=== PATIENT | male | born 1975 | race Caucasian/White ===

== ENCOUNTER 2017-10-26 16:57 | Inpatient (IN) ==
--- NOTE | 2017-10-26 21:32 | Internal Med History&Physical ---
Date of Encounter: 10/26/17 Time of Encounter: 21:28 Assessment and Plan (1) Gastritis Current visit: Yes Status: Acute Acute gastritis need further evaluation will continue Protonix from a Qualifiers: Gastritis type: unspecified gastritis Chronicity: acute Gastritis bleeding: without bleeding Qualified Code(s): K29.00 - Acute gastritis without bleeding (2) Nausea & vomiting Current visit: Yes Status: Acute Patient had not intractable nausea and vomiting which has not subsided normal vomiting will continue Zofran Qualifiers: Vomiting type: unspecified Vomiting Intractability: non-intractable Qualified Code(s): R11.2 - Nausea with vomiting, unspecified (3) HTN (hypertension) Current visit: Yes Status: Chronic Chronic patient takes Vasotec 20 mg twice a day but was unable to take it due to nausea and vomiting with resume with lisinopril once a day Qualifiers: Hypertension type: essential hypertension Qualified Code(s): I10 - Essential (primary) hypertension (4) Chronic pain Current visit: Yes Status: Chronic Resume home medication when available Qualifiers: Chronic pain type: chronic pain syndrome Qualified Code(s): G89.4 - Chronic pain syndrome (5) Crohn disease Current visit: Yes Status: Acute Is unclear about diagnosis of Crohn disease patient is not having any active bleeding GI consulted for further evaluation Qualifiers: Gastrointestinal tract location: unspecified location Digestive disease complication type: unspecified complication Qualified Code(s): K50.919 - Crohn 's disease, unspecified, with unspecified complications (6) Smoking Current visit: Yes Status: Chronic Chronic will place nicotine patch (7) Hypokalemia Current visit: Yes Status: Acute Patient had received multiple supplement we will recheck now and a.m. (8) Hypomagnesemia Current visit: Yes Status: Acute Recheck now and in a.m. Internal Medicine - H&P: HPI Chief complaint: nausea , vomtting Admitted From: Intrahospital Transfer Plans for Post Hospital Care: Home History of present illness: Mr. De is a 41 year old male Patient with history of questionable diagnosis of Crohn disease, hypertension, chronic pain syndrome, smoking, high cholesterol, and GERD. Patient was admitted to [facility] with intractable nausea , vomiting and diarrhea for 5 days some abdominal pain . He was unable to tolerate by mouth intake. During hospital admissions diarrhea had resolved vomiting has improved. Patient have severe hypokalemia , severe hypomagnesemia being replaced CT of the abdomen shows moderate to severe gastric wall thickening . Patient is being transferred for GI evaluation patient has seen DR WILY kidd in the past and is being consulted . Is currently stable mild abdominal pain no more vomiting , diarrhea has resolved blood pressure has been uncontrolled because of unable to take by mouth but he says he is able to take by mouth now Past Med Surg Social Fam HX - Past Medical History Medical history: GERD, hyperlipidemia, hypertension All Systems PM: A 10-system review of systems was performed and is negative for pertinent findings except as documented above in the HPI. - Constitutional Constitutional: no chills, no fever(s), no night sweats - EENT Eyes: no change in vision, no discharge, no pain, no photophobia Ears: no ear discharge, no ear pain, no tinnitus Nose, mouth and throat: no dysphagia, no nasal discharge, no neck pain, no sore throat - Cardiovascular Cardiovascular ROS IM: no chest pain, no diaphoresis, no dyspnea, no lightheadedness, no palpitations, no syncope - Respiratory Respiratory: no cough, no dyspnea, no wheezing, no excessive phlegm production - Gastrointestinal Gastrointestinal: abdominal pain, diarrhea, nausea, vomiting - Musculoskeletal Musculoskeletal ROS IM: no numbness, no tingling - Integumentary Integumentary IM: no rash, no unusual bruising - Neurological Neurological ROS: no confusion, no convulsions, no focal weakness, no numbness, no tingling, no tremor(s) - Head Head exam: Present: atraumatic, normocephalic - Eye Eye exam: Present: PERRL, conjuntiva pink, sclera anicteric Pupils: Present: PERRL - Respiratory Respiratory exam: Present: CTAB. Absent: accessory muscle use, rales, rhonchi, wheezes - Cardiovascular Cardiovascular exam: Present: RRR, +S1, +S2. Absent: diastolic murmur, gallop, rubs, systolic murmur - GI/Abdominal GI/Abdominal exam: Present: tenderness - Extremities Exam Extremities exam: Present: warm, radial pulses palpable and symmetrical. Absent : calf tenderness, cyanotic, pedal edema
[2017-10-26] MEDS ORDERED: Naloxone 0.4 MG/ML INJ IVP PRN (21:38)
[2017-10-26] MEDS ORDERED: traMADol 50 MG TABLET PO PRN (21:38)
[2017-10-26] MEDS ORDERED: Acetaminophen 325 MG TABLET PO PRN (21:38)
[2017-10-26] MEDS ORDERED: Ondansetron 4 MG/2 ML VIAL IVP PRN (21:45)
[2017-10-26 22:26] LABS: Hematocrit 36.5 % (37.5-50.1); Hemoglobin 12.7 g/dL (12.9-16.9); Mean Corpuscular HGB Conc 34.8 g/dL (31.6-35.5); Mean Corpuscular Hemoglobin 30.8 pg (28.0-33.3); Mean Corpuscular Volume 88.4 fL (83.0-100.0); Mean Platelet Volume 9.8 fL (9.4-12.4); Platelet Count 205 K/mcL (140-400); Red Blood Count 4.13 M/mcL (4.19-5.50); Red Cell Distribution Width 13.2 % (11.5-14.5)
[2017-10-26 22:48] LABS: BUN/Creatinine Ratio 19 (6-26); Blood Urea Nitrogen 15 mg/dL (6-20); Calcium 7.6 mg/dL (8.6-10.3); Carbon Dioxide 26 mEq/L (23-29); Chloride 108 mEq/L (98-107); Glucose 100 mg/dL (70-105); Magnesium 1.9 mg/dL (1.6-2.6); Osmolality,Calculated 295 (280-300); Potassium 3.2 mEq/L (3.5-5.1); Sodium 142 mEq/L (136-145); eGFR For African Americans > 60 (> 60); eGFR For Non-African Americans > 60 (> 60)
[2017-10-27 04:50] LABS: Alanine Aminotransferase 11 Units/L (7-52); Albumin 3.4 g/dL (3.5-5.7); Albumin/Globulin Ratio 1.2 (1.1-2.2); Alkaline Phosphatase 68 Units/L (34-104); Aspartate Amino Transferase 37 Units/L (13-39); BUN/Creatinine Ratio 20 (6-26); Bilirubin,Total 0.3 mg/dL (0.3-1.0); Blood Urea Nitrogen 17 mg/dL (6-20); Calcium 7.6 mg/dL (8.6-10.3); Carbon Dioxide 26 mEq/L (23-29); Chloride 109 mEq/L (98-107); Globulin 2.8 g/dL (2.4-3.5); Glucose 109 mg/dL (70-105); Osmolality,Calculated 296 (280-300); Potassium 3.4 mEq/L (3.5-5.1); Sodium 142 mEq/L (136-145); Total Protein 6.2 g/dL (6.4-8.9); eGFR For African Americans > 60 (> 60); eGFR For Non-African Americans > 60 (> 60)
[2017-10-27] MEDS: Pantoprazole 40 MG VIAL IVP SCH ×2 (06:01→17:05)
[2017-10-27] MEDS: *HR* Enoxaparin 40 MG/0.4 ML SYRINGE SQ SCH (06:01)
[2017-10-27] MEDS: Lisinopril 20 MG TABLET PO SCH (09:00)
--- NOTE | 2017-10-27 09:19 | Gastroenterology Consult Note ---
Date of Encounter: 10/27/17 Time of Encounter: 08:00 - Time Spent With Patient Total time spent is greater than 50% in coordination of care (as documented) at patient's floor/unit and/or counseling patient: 25 - 35 minutes GI History of Present Illness - Data of Consult Requesting Physician: Levi Kothari - Consult Narrative History of present illness: Mr. De is a 41 year old male who was referred to us from [facility] with intractable nausea and vomiting. He presented on Sunday to that hospital with those complaints and was admitted, hydrated and electrolytes replaced. He has not had any vomiting today. 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 He carries his own meals with him and ate a cheese and baloney sandwich that evening in the truck before returning home. He has a history of GERD and recalls an EGD and colonoscopy here some years ago and has been taking Prevacid regularly. No dysphagia. Strong family hx of colon cancer (dad 59, brother) and mother with metastatic cervical cancer. Smokes 1 ppd since teenage years. Used to drink as teenager before he quit after he reportedly got in trouble. No hx of cannabis. Ibuprofen 1-2 per week. Had a ruptured appendix and had his gallbladder removed at the same time (sinning) per patient. Other than last few days he has a good appetite and no weight loss otherwise. Past Med Surg Social Fam HX - Past Medical History Medical history: arthritis, COPD, fibromyalgia, GERD, hyperlipidemia, hypertension - Social History Smoking Status: Current every day smoker Packs per day: 1 Smokeless Tobacco Status: No Alcohol use: none Drug use: none - Family History Mother Name: Farida De Living Status: Age at : 62 Cause of : cancer Hx Family Cancer: Yes Father Name: Joel De Living Status: Age at : 59 Cause of : CHF Hx Family Cardiac Disorders: Yes Hx Family Cancer: Yes Hx Family Endocrine Disorder: Yes All systems PM: reviewed and no additional remarkable complaints except as stated - Constitutional Vitals: Temp Pulse Resp BP Pulse Ox 98.6 F 74 20 145/113 100 10/27/17 08:49 10/27/17 08:49 10/27/17 08:49 10/27/17 08:49 10/27/17 08:49 General appearance: Present: A&O X 3, pleasant, no acute distress, answers questions appropriately - Head Head exam: Present: atraumatic, normal inspection, normocephalic - Eye Eye exam: Present: EOMI, PERRL, conjuntiva pink, sclera anicteric - ENT ENT exam: Present: mucous membranes dry, normal oropharynx - Neck Neck exam general surgery: Present: full ROM, normal inspection, supple, trachea midline - Respiratory Respiratory exam: Present: CTAB - Cardiovascular Cardiovascular exam: Present: RRR - GI/Abdominal GI/Abdominal exam: Present: normal bowel sounds, soft, tenderness - Rectal Rectal exam: Present: deferred - Extremities Exam Extremities exam: Present: full ROM, normal inspection - Neurological Exam Neurological exam: Present: alert, oriented X3, no focal deficits - Psychiatric Psychiatric exam: Present: normal affect, normal mood - Skin Skin exam: Present: intact Results - Labs CBC & Chem 7: 10/28/17 06:05 10/28/17 06:05 Labs: Last Result Calcium 7.6 mg/dL (8.6-10.3) L 10/27/17 04:04 Triglycerides 83 mg/dL (< 150) 10/26/17 22:14 Entire Visit Hgb 12.7 g/dL (12.9-16.9) L 10/26/17 22:14 Hct 36.5 % (37.5-50.1) L 10/26/17 22:14 Total Bilirubin 0.3 mg/dL (0.3-1.0) 10/27/17 04:04 AST 37 Units/L (13-39) 10/27/17 04:04 ALT 11 Units/L (7-52) 10/27/17 04:04 - Diagnostic Studies CT scan - abdomen Status: image reviewed by me Consult Discharge Plan - Plan Instructions: Sucralfate (By mouth), Omeprazole (By mouth), Hiatal Hernia (DC) , Acute Nausea and Vomiting (DC), Corrosive Esophagitis (DC) Referrals: Chapin Chambers MD [Partnered Physician] - (Office will contact you with follow up appointment. If not contacted by sunday please give office a call. ) Luis Cook MD [Primary Care Provider] - 10/31/17 11:00 am () Prescriptions: Ondansetron ODT [Zofran ODT] 4 mg SL Q6HR PRN #30 tab.rapdis PRN Reason: Nausea amLODIPine [Norvasc] 10 mg PO DAILY #60 tablet Metoprolol XL (24 HR) Succ [Toprol Xl] 12.5 mg PO DAILY #30 tab.er.24h Omeprazole Magnesium [Prilosec Otc] 20 mg PO BID #60 tablet. Sucralfate [Carafate] 1 gm PO QID #120 oral.susp - Attending Attestation Mr De was transferred from [facility] with nausea and vomiting since Sunday. Ate a Baloney and cheese sandwich from his cooler on a trip from [place] ( box truck owner operator) just a couple of hours before he started vomiting. Plan EGD and further recommendations post that. DIscussed plan with patient and . I have personally performed a face to face evaluation on this patient. I have reviewed and agree with the care plan. History and Exam by me shows:
--- NOTE | 2017-10-27 14:26 | Anesthesia Evaluation PreOp ---
Date of Encounter: 10/27/17 Time of Encounter: 09:30 - Past History Planned Operation: EGD Cardiac History: HTN, Hyperlipidemia Pulmonary History: Smoker, COPD [employer] History: Other (Chronic pain) Other Medical History: Denies Any Significant HX, GERD, Other (Nausea, Vomiting) Anesthesia History: No Prior Anesthetic Complications, Past Anesthesia Alcohol Use: none Drug use: none Medications and Allergies Amitriptyline [Elavil] 50 mg PO HS 10/27/17 [History] Cyclobenzaprine [Flexeril] 10 mg PO BID 10/27/17 [History] Enalapril Maleate [Vasotec] 20 mg PO BID 10/27/17 [History] Ergocalciferol (VITAMIN D2) [Vitamin D2] 50,000 unit PO QWEEK 10/27/17 [History] Lansoprazole [Prevacid] 30 mg PO DAILY 10/27/17 [History] Levothyroxine Sodium [Levoxyl] 150 mcg PO DAILY 10/27/17 [History] Oxycodone HCl/Acetaminophen [Percocet 10-325 mg Tablet] 1 tab PO QID PRN [History] Pravastatin Sodium [Pravachol] 20 mg PO DAILY 10/27/17 [History] Testosterone Cypionate [Testone Cik] 200 mg IM QMONTH 10/27/17 [History] clonazePAM [Klonopin] 2 mg PO QID PRN 10/27/17 [History] 3 Allergy/AdvReac Type Severity Reaction Status Date / Time No Known Allergies Allergy Verified 10/26/17 22:16 - Meds/Allergy Pre-op Review Medications Reviewed: Yes Allergies Reviewed: Yes Beta Blockers on Current Med List: No Anesthesia Results - Labs 10/26/17 22:14 10/27/17 04:04 Anesthesia Exam Vital Signs/O2 Sat, Most Current Temp Pulse Resp BP Pulse Ox 98.6 F 74 20 145/113 100 10/27/17 08:49 10/27/17 08:49 10/27/17 08:49 10/27/17 08:49 10/27/17 08:49 Weight: 84 Kg, BMI 24 NPO (# of Hours): >8 - HEENT Mallampati: I Teeth: Missing, Poor dentition - Cardiac Rhythm: Regular - Pulmonary Breath Sounds: bilateral Rhonchi Anesthesia Assess/Plan ASA Score: 3 Modified [place] Scale for Level of Consciousness: Cooperative, oriented, and tranquil Anesthetic Plan: MAC Monitoring Plan: Standard Monitors Recovery Plan: PACU Anes Supervising Prov Stmt: Patient informed and consented. Risks, benefits, and alternatives discussed. Patient wishes to proceed.
[2017-10-27] MEDS ORDERED: Potassium Chloride 40 MEQ, Lidocaine 1% 2 ML in D5% in Water 500 ML IVPB ONE (14:48)
--- NOTE | 2017-10-27 14:51 | Internal Med Progress Note ---
Date of Encounter: 10/27/17 Time of Encounter: 14:49 - Assessment and plan (1) Nausea & vomiting Current Visit: Yes Status: Acute Assessment and plan: Presented from outside hospital with intractable nausea and vomiting for 5 days prior to arrival. With associated intermittent abdominal pain and loose stool. Outside hospital abdomen/pelvis CT with moderate to severe gastric wall thickening likely due to gastritis. 10/27/17 EGD with reflux esophagitis, small hiatal hernia and enlarged gastric folds; biopsies taken pathology pending. Continue IV PPI, add Carafate. Clear liquid diet per GI. Advance as tolerated starting 10/28. Qualifiers: Vomiting type: unspecified Vomiting Intractability: non-intractable Qualified Code(s): R11.2 - Nausea with vomiting, unspecified (2) Leukocytosis Current Visit: Yes Status: Acute Assessment and plan: WBC 16K. no tachycardia, no hypotension. Lactic acid not drawn. He does not appear toxic or acute. Suspect reactive with intractable nausea and vomiting combined with current tobacco use. Monitor repeat CBC. Qualifiers: Leukocytosis type: unspecified Qualified Code(s): D72.829 - Elevated white blood cell count, unspecified (3) HTN (hypertension) Current Visit: Yes Status: Chronic Assessment and plan: per hx. BP controlled Qualifiers: Hypertension type: essential hypertension Qualified Code(s): I10 - Essential (primary) hypertension (4) DVT prophylaxis Current Visit: Yes Status: Acute Assessment and plan: lovenox - Time Spent With Patient Total time spent is greater than 50% in coordination of care (as documented) at patient's floor/unit and/or counseling patient: - Subjective Interval history: Seen and examined at bedside. Patient is new to me, information obtained from chart review and patient report. Says he feels somewhat better. Still having abdominal pain and nausea but he is tolerating small amounts of clear liquid diet. Underwent an EGD today which biopsies were taken. Discussed case with Dr. Chambers who is a patient and be discharged home from a GI standpoint with outpatient follow-up however patient and family requesting to stay as patient still symptomatic. - Constitutional Vitals: Temp Pulse Resp BP Pulse Ox 98.6 F 74 20 145/113 100 10/27/17 08:49 10/27/17 08:49 10/27/17 08:49 10/27/17 08:49 10/27/17 08:49 General appearance: Present: A&O X 3 - Head Head exam: Present: atraumatic, normocephalic - Eye Eye exam: Present: PERRL, conjuntiva pink, sclera anicteric Pupils: Present: PERRL - Neck Neck exam general surgery: Present: supple, trachea midline. Absent: lymphadenopathy - Respiratory Respiratory exam: Present: CTAB. Absent: accessory muscle use, rales, rhonchi, wheezes - Cardiovascular Cardiovascular exam: Present: RRR, +S1, +S2. Absent: diastolic murmur, gallop, rubs, systolic murmur - GI/Abdominal GI/Abdominal exam: Present: normal bowel sounds, soft, no peritoneal signs. Absent: distended, tenderness - Extremities Exam Extremities exam: Present: warm, radial pulses palpable and symmetrical. Absent : calf tenderness, cyanotic, pedal edema - Neurological Exam Neurological exam: Present: CN II-XII intact, oriented X3, no focal deficits. Absent: pronater drift, facial droop, speech deficit - Skin Skin exam: Present: dry, intact Internal Medicine: Result - Labs CBC & Chem 7: 10/26/17 22:14 10/27/17 04:04 Labs: Short CBC 10/26/17 Range/Units 22:14 WBC 16.7 H (4.3-11.1) K/mcL Hgb 12.7 L (12.9-16.9) g/dL Hct 36.5 L (37.5-50.1) % Plt Count 205 (140-400) K/mcL BMP 10/26/17 10/27/17 22:14 04:04 Sodium 142 142 Potassium 3.2 L 3.4 L Chloride 108 H 109 H Carbon Dioxide 26 26 BUN 15 17 Creatinine 0.81 0.85 Glucose 100 109 H Calcium 7.6 L 7.6 L Liver Function 10/27/17 Range/Units 04:04 Total Bilirubin 0.3 (0.3-1.0) mg/dL AST 37 (13-39) Units/L ALT 11 (7-52) Units/L Alkaline Phosphatase 68 (34-104) Units/L Albumin 3.4 L (3.5-5.7) g/dL Consult Discharge Plan - Plan Referrals: Luis Cook MD [Primary Care Provider] -
--- NOTE | 2017-10-27 14:56 | Anesthesia Evaluation Post Op ---
Date of Encounter: 10/27/17 Time of Encounter: 10:12 Notes: Patient's vital signs have been reviewed. Patient is stable postoperatively and has adequately recovered from anesthesia. Patient is determined to have stable airway patency and respiratory function including respiratory rate and oxygen saturation. Patient has a stable heart rate, blood pressure and adequate hydration. Patients mental status is acceptable. Patients temperature is appropriate. Pain and nausea are adequately controlled. - Discharge PostOp Status: Transfer Patient to floor
[2017-10-27] MEDS ORDERED: Propofol 500 MG/50 ML INFUS..BTL ONE (17:03)
[2017-10-27] MEDS: 0.9 % Sodium Chloride 1,000 ML IVC SCH (17:06)
[2017-10-28] MEDS: *HR* Enoxaparin 40 MG/0.4 ML SYRINGE SQ SCH (06:07)
[2017-10-28] MEDS: Pantoprazole 40 MG VIAL IVP SCH ×2 (06:07→17:56)
[2017-10-28 06:36] LABS: Hematocrit 36.1 % (37.5-50.1); Hemoglobin 12.5 g/dL (12.9-16.9); Mean Corpuscular HGB Conc 34.6 g/dL (31.6-35.5); Mean Corpuscular Hemoglobin 30.9 pg (28.0-33.3); Mean Corpuscular Volume 89.1 fL (83.0-100.0); Mean Platelet Volume 10.3 fL (9.4-12.4); Platelet Count 198 K/mcL (140-400); Red Blood Count 4.05 M/mcL (4.19-5.50)
[2017-10-28] MEDS: 0.9 % Sodium Chloride 1,000 ML IVC SCH ×2 (06:39→17:56)
[2017-10-28 07:00] LABS: BUN/Creatinine Ratio 9 (6-26); Blood Urea Nitrogen 6 mg/dL (6-20); Calcium 7.5 mg/dL (8.6-10.3); Carbon Dioxide 28 mEq/L (23-29); Chloride 106 mEq/L (98-107); Glucose 98 mg/dL (70-105); Osmolality,Calculated 292 (280-300); Potassium 3.3 mEq/L (3.5-5.1); Sodium 142 mEq/L (136-145); eGFR For African Americans > 60 (> 60); eGFR For Non-African Americans > 60 (> 60)
[2017-10-28] MEDS: Lisinopril 20 MG TABLET PO SCH (08:14)
--- NOTE | 2017-10-28 13:21 | Discharge Summary ---
- NOTES TO OUTPATIENT PROVIDER Notes to Outpatient Provider: Recommend follow-up within one week for BP recheck Orders not resulted at time of discharge: Pending orders 10/27/17 10:03 Surgical Pathology [PTH] Routine 10/27/17 15:02 GI Panel,Stool [MOLMIC] Stat Date of Encounter: 10/28/17 Time of Encounter: 13:19 - Discharge Diagnosis (1) Nausea & vomiting Priority: Primary Status: Acute Comments: presented from outside hospital with intractable nausea and vomiting for 5 days prior to arrival. With associated intermittent abdominal pain and loose stool. Outside hospital abdomen/pelvis CT with moderate to severe gastric wall thickening likely due to gastritis however this can be seen with malignancy as well. 10/27/17 EGD with reflux esophagitis, small hiatal hernia and enlarged gastric folds; biopsies taken, pathology pending. GI panel negative. Symptoms improved with conservative management (clear liquid diet, IV fluids, IV antiemetics). Evaluated by GI who recommended continuing clear liquid diet through 10/28/17 and advancing as tolerated starting 10/29. Follow-up with GI in 2 weeks and repeat C-scope in 6 weeks. Continue PPI, Carafate, PRN zofran. Qualifiers: Vomiting type: unspecified Vomiting Intractability: non-intractable Qualified Code(s): R11.2 - Nausea with vomiting, unspecified (2) Leukocytosis Priority: Primary Status: Acute Comments: WBC 16K. no tachycardia, no hypotension. Lactic acid not drawn. He does not appear toxic or acute. Suspect reactive with intractable nausea and vomiting combined with current tobacco use. WBC 10K at discharge. Qualifiers: Leukocytosis type: unspecified Qualified Code(s): D72.829 - Elevated white blood cell count, unspecified (3) HTN (hypertension) Priority: Primary Status: Chronic Comments: per hx. with transient elevation in BP during this hospitalization. Likely secondary to acute nausea/vomiting/illness. BP acceptable at time of discharge. Continue home BP medication. Recommend follow-up with PCP within one week for BP recheck Qualifiers: Hypertension type: essential hypertension Qualified Code(s): I10 - Essential (primary) hypertension (4) Hypokalemia Priority: Primary Status: Acute Comments: Secondary to poor PO intake and nausea. Potassium replacement inpatient. Recommend repeat CMP with PCP within one week Hospital course: Please see assessment and plan for hospital course Discharge discussed with: patient (Seen and examined at bedside. Says he feels better today but still having some nausea, no vomiting. Has some mild abdominal tenderness. Tolerated liquid diet without emesis. He was evaluated by GI today who recommended continuing clear liquid diet through today and advancing to full liquid tomorrow; and patient were educated extensively per Dr. Au. Symptoms improved later on in afternoon and patient requested discharge home. Is to return to ER if abdominal pain or inability to tolerate oral intake recurred. Patient verbalizes understanding.) - Time Spent with Patient Total time spent providing and/or coordinating discharge services: - Discharge Medications Prescriptions: Ondansetron ODT [Zofran ODT] 4 mg SL Q6HR PRN #30 tab.rapdis PRN Reason: Nausea Omeprazole Magnesium [Prilosec Otc] 20 mg PO BID #60 tablet. Sucralfate [Carafate] 1 gm PO QID #120 oral.susp Home Medications: Amitriptyline [Elavil] 50 mg PO HS 10/27/17 [History] Cyclobenzaprine [Flexeril] 10 mg PO BID 10/27/17 [History] Enalapril Maleate [Vasotec] 20 mg PO BID 10/27/17 [History] Ergocalciferol (VITAMIN D2) [Vitamin D2] 50,000 unit PO QWEEK 10/27/17 [History] Levothyroxine Sodium [Levoxyl] 150 mcg PO DAILY 10/27/17 [History] Oxycodone HCl/Acetaminophen [Percocet 10-325 mg Tablet] 1 tab PO QID PRN [History] Pravastatin Sodium [Pravachol] 20 mg PO DAILY 10/27/17 [History] Testosterone Cypionate [Testone Cik] 200 mg IM QMONTH 10/27/17 [History] clonazePAM [Klonopin] 2 mg PO QID PRN 10/27/17 [History] Omeprazole Magnesium [Prilosec Otc] 20 mg PO BID #60 tablet. 10/28/17 [Rx] Ondansetron ODT [Zofran ODT] 4 mg SL Q6HR PRN #30 tab.rapdis 10/28/17 [Rx] Sucralfate [Carafate] 1 gm PO QID #120 oral.susp 10/28/17 [Rx] Allergies/Adverse Reactions: 3 Allergy/AdvReac Type Severity Reaction Status Date / Time No Known Allergies Allergy Verified 10/26/17 22:16 Date of admission: 10/26/17 21:38 Primary care physician: Luis Cook MD Consults: 10/26/17 21:42 Consult to Physician [CONS] Routine Consulting Provider: Franklin Sawyer Reason for Consult: gastritis, severe nausea and vomitting, chrohn disease? Call Completed: No Discharging clinician: Malika Lopez Anticipated date of discharge: 10/28/17 - Constitutional Vitals: Temp Pulse Resp BP Pulse Ox 98.3 F 74 16 163/91 98 10/28/17 10:08 10/28/17 10:08 10/28/17 10:08 10/28/17 10:08 10/28/17 10:08 General appearance: Present: A&O X 3, no acute distress - Head Head exam: Present: atraumatic, normocephalic - Eye Eye exam: Present: PERRL, conjuntiva pink, sclera anicteric Pupils: Present: PERRL - Neck Neck exam general surgery: Present: supple, trachea midline. Absent: lymphadenopathy - Respiratory Respiratory exam: Present: CTAB. Absent: accessory muscle use, rales, rhonchi, wheezes - Cardiovascular Cardiovascular exam: Present: RRR, +S1, +S2. Absent: diastolic murmur, gallop, rubs, systolic murmur - GI/Abdominal GI/Abdominal exam: Present: normal bowel sounds, soft, no peritoneal signs. Absent: distended, tenderness - Extremities Exam Extremities exam: Present: warm, radial pulses palpable and symmetrical. Absent : calf tenderness, cyanotic, pedal edema - Neurological Exam Neurological exam: Present: CN II-XII intact, oriented X3, no focal deficits. Absent: pronater drift, facial droop, speech deficit - Skin Skin exam: Present: dry, intact - Patient Status Disposition: Home, Self-Care Condition: Good Functional capacity at discharge: independent ambulation Overall status at discharge: patient is progressing back to baseline - Discharge Instructions Instructions: Acute Nausea and Vomiting (DC), Hiatal Hernia (DC), Corrosive Esophagitis (DC), Sucralfate (By mouth), Omeprazole (By mouth) Follow Up With: Luis Cook MD [Primary Care Provider] - (Please call for follow-up appointment on Sunday10/29/2017. She was recommended CBC within one week for BP recheck and repeat complete metabolic panel to monitor potassium level) Chapin Au MD [Partnered Physician] - (Please call the office on 10/29 2 schedule follow appointment within [address] Au, he will need a repeat colonoscopy in 6 weeks) - Diet and Activity Activity: increase activity as tolerated Diet: advance to your usual diet (Continue clear liquid diet through today and advance as tolerated starting Sunday10/29/17)
[2017-10-28 13:24] LABS: Campylobacter by PCR Not detected (Not detect); Plesiomonas shigelloides PCR Not detected (Not detect); Salmonella PCR Not detected (Not detect); Vibrio PCR Not detected (Not detect); Vibrio cholerae PCR Not detected (Not detect)
[2017-10-28 13:25] LABS: Adenovirus F 40/41 PCR Not detected (Not detect); Astrovirus PCR Not detected (Not detect); Cryptosporidium by PCR Not detected (Not detect); Cyclospora cayetanensis PCR Not detected (Not detect); E. coli O157 by PCR Not detected (Not detect); Entamoeba histolytica PCR Not detected (Not detect); Enteroaggregative E.coli(EAEC) Not detected (Not detect); Enteropathogenic E.coli(EPEC) Not detected (Not detect); Enterotoxigenic E.coli (ETEC) Not detected (Not detect); Giardia lamblia PCR Not detected (Not detect); Norovirus GI/GII PCR Not detected (Not detect); Rotavirus A PCR Not detected (Not detect); Sapovirus PCR Not detected (Not detect); Shig/EnteroinvasiveE coli EIEC Not detected (Not detect); Shigalike tox-prod E coli STEC Not detected (Not detect); Yersinia enterocolitica PCR Not detected (Not detect)
[2017-10-28] MEDS ORDERED: cloNIDine HCl 0.1 MG TABLET PO ONE (13:54)
[2017-10-28] MEDS ORDERED: clonazePAM 1 MG TABLET PO PRN (15:35)
[2017-10-28] MEDS ORDERED: Lisinopril 20 MG TABLET PO ONE (15:36)
--- NOTE | 2017-10-28 16:00 | Event Note ---
Date of Encounter: 10/28/17 Time of Encounter: 15:57 BP uncontrolled after discharge with SBP's in the 180s and DBPs in the 100s. Increase CHACORTA to home dose and give one-time dose oral clonidine (IV was removed as patient was going to be discharged). Monitor BP and titrate when necessary. Will need to have PIV reinserted if unable to get SBP less than 160.
[2017-10-29] MEDS: 0.9 % Sodium Chloride 1,000 ML IVC SCH (04:13)
[2017-10-29] MEDS: *HR* Enoxaparin 40 MG/0.4 ML SYRINGE SQ SCH (05:26)
[2017-10-29] MEDS: Pantoprazole 40 MG VIAL IVP SCH (05:26)
[2017-10-29] MEDS ORDERED: Metoprolol XL (24 HR) Succ 25 MG TAB.ER.24H PO SCH (09:00)
[2017-10-29] MEDS ORDERED: Lisinopril 20 MG TABLET PO SCH (09:00)
[2017-10-29] MEDS ORDERED: cloNIDine HCl 0.1 MG TABLET PO ONE (10:56)
[2017-10-29] MEDS ORDERED: amLODIPine 5 MG TABLET PO SCH (15:00)
[2017-10-29 15:08] VITALS: BP 169/107
--- NOTE | 2017-10-29 16:05 | Internal Med Progress Note ---
Date of Encounter: 10/29/17 Time of Encounter: 16:02 - Assessment and plan (1) Nausea & vomiting Current Visit: Yes Status: Acute Assessment and plan: presented from outside hospital with intractable nausea and vomiting for 5 days prior to arrival. With associated intermittent abdominal pain and loose stool. Outside hospital abdomen/pelvis CT with moderate to severe gastric wall thickening likely due to gastritis however this can be seen with malignancy as well. 10/27/17 EGD with reflux esophagitis, small hiatal hernia and enlarged gastric folds; biopsies taken, pathology pending. GI panel negative. Symptoms improved with conservative management (clear liquid diet, IV fluids, IV antiemetics). Evaluated by GI who recommended continuing clear liquid diet through 10/28/17 and advancing as tolerated starting 10/29. Follow-up with GI in 2 weeks and repeat C-scope in 6 weeks. Continue PPI, Carafate, PRN zofran. Qualifiers: Vomiting type: unspecified Vomiting Intractability: non-intractable Qualified Code(s): R11.2 - Nausea with vomiting, unspecified (2) Leukocytosis Current Visit: Yes Status: Acute Assessment and plan: WBC 16K. no tachycardia, no hypotension. Lactic acid not drawn. He does not appear toxic or acute. Suspect reactive with intractable nausea and vomiting combined with current tobacco use. WBC 10K at discharge. Qualifiers: Leukocytosis type: unspecified Qualified Code(s): D72.829 - Elevated white blood cell count, unspecified (3) HTN (hypertension) Current Visit: Yes Status: Chronic Assessment and plan: per hx. BP initially controlled and then became severely uncontrolled with SBP' s in 200s and deep BPs in the 100s. Home CHACORTA continued as well as adding BB and amlodipine. He has required a one-time dose of oral clonidine and IV hydralazine today. Okay to discharge home if SBP less than 160. Has follow-up with PCP scheduled on Sunday10/31/17. Qualifiers: Hypertension type: essential hypertension Qualified Code(s): I10 - Essential (primary) hypertension (4) Hypokalemia Current Visit: Yes Status: Acute Assessment and plan: Likely secondary to nausea/vomiting. Replacement ordered. Monitor repeat CMP if remains inpatient or recommend repeat CMP with PCP after discharge - Time Spent With Patient Total time spent is greater than 50% in coordination of care (as documented) at patient's floor/unit and/or counseling patient: - Subjective Interval history: Seen and examined at bedside. Sitting up in chair bedside. Says he feels better, no abdominal pain. Tolerating regular diet. His blood pressures uncontrolled which required his discharge to be canceled. He does report intermittent headache which is likely secondary to uncontrolled blood pressure. No chest pain or shortness of breath. No vision changes. - Constitutional Vitals: Temp Pulse Resp BP Pulse Ox 98.5 F 75 15 169/107 100 10/29/17 15:04 10/29/17 15:04 10/29/17 15:04 10/29/17 15:04 10/29/17 15:04 General appearance: Present: A&O X 3, no acute distress - Head Head exam: Present: atraumatic, normocephalic - Eye Eye exam: Present: PERRL, conjuntiva pink, sclera anicteric Pupils: Present: PERRL - Neck Neck exam general surgery: Present: supple, trachea midline. Absent: lymphadenopathy - Respiratory Respiratory exam: Present: CTAB. Absent: accessory muscle use, rales, rhonchi, wheezes - Cardiovascular Cardiovascular exam: Present: RRR, +S1, +S2. Absent: diastolic murmur, gallop, rubs, systolic murmur - GI/Abdominal GI/Abdominal exam: Present: normal bowel sounds, soft, no peritoneal signs. Absent: distended, tenderness - Extremities Exam Extremities exam: Present: warm, radial pulses palpable and symmetrical. Absent : calf tenderness, cyanotic, pedal edema - Neurological Exam Neurological exam: Present: CN II-XII intact, oriented X3, no focal deficits. Absent: pronater drift, facial droop, speech deficit - Skin Skin exam: Present: dry, intact Internal Medicine: Result - Labs CBC & Chem 7: 10/28/17 06:05 10/28/17 06:05 Consult Discharge Plan - Plan Instructions: Sucralfate (By mouth), Omeprazole (By mouth), Hiatal Hernia (DC) , Acute Nausea and Vomiting (DC), Corrosive Esophagitis (DC) Referrals: Chapin Chambers MD [Partnered Physician] - (Office will contact you with follow up appointment. If not contaced by sunday please give office a call. ) Luis Cook MD [Primary Care Provider] - 10/31/17 11:00 am () Prescriptions: Ondansetron ODT [Zofran ODT] 4 mg SL Q6HR PRN #30 tab.rapdis PRN Reason: Nausea Omeprazole Magnesium [Prilosec Otc] 20 mg PO BID #60 tablet. Sucralfate [Carafate] 1 gm PO QID #120 oral.susp
== END 2017-10-29 17:18 | disposition home or self-care (01) | DRG 241 ==
LOC: 3BNU
PROVIDERS: ADMIT Internal Medicine Cardiovascular Disease; ATTEND Family Medicine
PROC: ENDOEBX (2017-10-27 11:00)

== ENCOUNTER 2017-11-09 19:04 | Observation (INO) ==
[2017-11-09] MEDS ORDERED: 0.9 % Sodium Chloride 1,000 ML IVC ONE (19:17)
[2017-11-09] MEDS ORDERED: *HR* Promethazine 25 MG/ML VIAL IVP ONE (19:17)
--- NOTE | 2017-11-09 19:41 | Emergency Department Note ---
Disposition Clinical Impression: Vertigo Nausea and vomiting Qualifiers: Vomiting type: unspecified Vomiting Intractability: non-intractable Qualified Code(s): R11.2 - Nausea with vomiting, unspecified Disposition: Admitted As Inpatient Condition: Fair Time of Disposition: 21:55 Nausea/Vomiting/Diarrhea HPI - General Chief complaint: ED Nausea/Vomiting/Diarrhea Stated complaint: NV Time Seen by Provider: 11/09/17 19:15 Source: patient, EMS Limitations: no limitations Nursing Notes Reviewed: Yes Vital Signs Reviewed: Yes - History of Present Illness HPI Narrative: Patient is a 42-year-old male who presents to [facility] ED with a chief complaint of nausea, vomiting, dizziness. States his symptoms started yesterday and have been persistent. He was seen in the hospital and discharged on October 28 after a five-day hospital stay for evaluation of his nausea and vomiting. He had had symptoms 3 weeks prior to that. States at that time, his potassium was very low. They did a scope with biopsies during his inpatient stay. They were unable to find out what was causing his symptoms. However he had been feeling a little bit better so he went home. States with this episode, he has had several days of feeling more weak and then started having dizziness like the room is spinning. States it is worse when he moves his head. States this has been persistent along with ringing of the ears. States they did decide to add to blood pressure medications during his last hospital stay. No other medication changes. Denies any drug use. Pt Subjective Complaint: nausea, vomiting, abdominal pain Onset (ago): day(s) (2) Associated Abdominal Pain: Yes If pain, Location of pain: LLQ Quality: aching Consistency: intermittent Improves with: nothing Worsens with: nonthing - Related Data Home Medications Medication Instructions Recorded Confirmed Amitriptyline [Elavil] 50 mg PO HS 10/27/17 10/27/17 Cyclobenzaprine [Flexeril] 10 mg PO BID 10/27/17 10/27/17 Enalapril Maleate [Vasotec] 20 mg PO BID 10/27/17 10/27/17 Ergocalciferol (VITAMIN D2) 50,000 unit PO QWEEK 10/27/17 10/27/17 [Vitamin D2] Levothyroxine Sodium [Levoxyl] 150 mcg PO DAILY 10/27/17 10/27/17 Oxycodone HCl/Acetaminophen 1 tab PO QID PRN 10/27/17 10/27/17 [Percocet 10-325 mg Tablet] Pravastatin Sodium [Pravachol] 20 mg PO DAILY 10/27/17 10/27/17 Testosterone Cypionate [Testone 200 mg IM QMONTH 10/27/17 10/27/17 Cik] clonazePAM [Klonopin] 2 mg PO QID PRN 10/27/17 10/27/17 Aspirin [Lo-Dose Aspirin EC] 81 mg PO DAILY 11/09/17 11/09/17 Cyanocobalamin (B-12) [Vitamin B12] 1,000 mcg IM QMONTH 11/09/17 11/09/17 amLODIPine [Norvasc] 5 mg PO BID 11/09/17 11/09/17 Previous Rx's Medication Instructions Recorded Omeprazole Magnesium [Prilosec Otc] 20 mg PO BID #60 tablet. 10/28/17 Ondansetron ODT [Zofran ODT] 4 mg SL Q6HR PRN #30 tab.rapdis 10/28/17 Metoprolol XL (24 HR) Succ [Toprol 12.5 mg PO DAILY #30 tab.er.24h 10/29/17 Xl] Allergies Allergy/AdvReac Type Severity Reaction Status Date / Time No Known Allergies Allergy Verified 10/26/17 22:16 Past Medical History - Past Medical History Medical history: Reports: arthritis, COPD, fibromyalgia, GERD, hyperlipidemia, hypertension Psychiatric history: Reports: anxiety - Social History Smoking Status: Former smoker Smokeless Tobacco Status: No Alcohol use: Reports: none Drug use: Reports: none Physical Exam - General Limitations: no limitations General appearance: alert, in no apparent distress - Head Head exam: atraumatic, normocephalic, normal inspection - Eye Eye exam: Present: normal appearance, PERRL, EOMI - ENT ENT exam: normal exam, normal oropharynx, mucous membranes moist - Neck Neck exam: Present: normal inspection, full ROM, trachea midline - Chest Chest inspection: Present: normal inspection, symmetric chest wall rise - Respiratory Respiratory exam: Present: normal lung sounds bilaterally - Cardiovascular Cardiovascular exam: Present: regular rate, normal rhythm, normal heart sounds - Abdominal Exam Abdominal exam: Present: soft, tenderness, normal bowel sounds Abdominal tenderness: Present: LLQ - Extremities Exam Extremities exam: Present: normal inspection, full ROM. Absent: tenderness, pedal edema - Back Exam Back exam: Present: normal inspection, full ROM. Absent: tenderness - Neurological Exam Neurological exam: Present: alert, oriented X3, other (R fast phase nystagmus, L rotary nystagmus) - Expanded Neurological Exam Patient oriented to: Present: person, place, time Speech: Present: fluid speech Cranial nerves: EOM function (II, III, IV, ): Normal Cerebellar function: finger to nose: Normal Motor strength - LUE: 5/5 Motor strength - RUE: 5/5 Motor strength - LLE: 5/5 Motor strength - RLE: 5/5 Coma Scale Eye Opening: Spontaneous Coma Scale Motor Response: Obeys Commands Coma Scale Verbal Response: Oriented Coma Scale Total: 15 - Psychiatric Psychiatric exam: Present: normal affect, normal mood - Skin Skin exam: Present: warm, dry, intact, normal color Course Course Narrative: Patient seen and examined. Nausea vomiting, tinnitus, vertigo. We will treat him symptomatically with some Phenergan. He already received a dose of Zofran on route. Per EMS, he was actively vomiting prior to the Zofran. We will give a liter of IV fluids. Check basic lab work, reassess. - Reevaluation(s) Reevaluation #1: The patient's lab work shows a potassium of 3.3. We will place with 40 mEq of oral potassium. We will also give a dose of meclizine. Patient states he consistently feels the room spinning. He has also had a headache and blurry vision with this. States he never previously had headaches. Due to these new neurologic symptoms and the new persistent headaches, we will ahead and do a CT scan of the head. We will likely admit for MRI/MRA. Discussed with hospitalist who has accepted patient for admission. Time: 20:59 Vital Signs Temperature 98.3 F 11/09/17 19:06 Pulse Rate 96 11/09/17 19:06 Respiratory Rate 16 11/09/17 19:06 Blood Pressure 164/114 11/09/17 19:06 O2 Sat by Pulse Oximetry 96 11/09/17 19:06 Temperature 98.3 F 11/09/17 19:06 Pulse Rate 82 11/09/17 22:00 Respiratory Rate 18 11/09/17 23:20 Blood Pressure 144/98 11/09/17 23:20 O2 Sat by Pulse Oximetry 96 11/09/17 22:00 Oxygen Delivery Oxygen Delivery Room Air Nausea/Vomiting/Diarrhea - Medical Records Medical records reviewed: Yes I reviewed the patient's medical records. - Lab Data Lab results reviewed: Yes I reviewed the patient's lab results. Result diagrams: 11/09/17 19:25 11/09/17 19:25 Lab Results 11/09/17 11/09/17 11/09/17 Range/Units 19:25 19:25 19:59 WBC 13.0 H (4.3-11.1) K/mcL RBC 4.49 (4.19-5.50) M/mcL Hgb 13.7 (12.9-16.9) g/dL Hct 39.2 (37.5-50.1) % MCV 87.3 (83.0-100.0) fL MCH 30.5 (28.0-33.3) pg MCHC 34.9 (31.6-35.5) g/dL RDW 13.1 (11.5-14.5) % Plt Count 311 (140-400) K/mcL MPV 9.8 (9.4-12.4) fL Immature Gran % 0.4 (0-4) % Seg Neutrophils % 72.2 % Lymphocytes % 20.7 % Monocytes % 6.0 % Eosinophils % 0.5 % Basophils % 0.2 % Neutrophils # 9.4 H (1.6-8.9) K/mcL Lymphocytes # 2.7 (0.6-4.6) K/mcL Monocytes # 0.8 (0.0-1.3) K/mcL Eosinophils # 0.1 (0.0-0.6) K/mcL Basophils # 0.0 (0.0-0.2) K/mcL Sodium 138 (136-145) mEq/L Potassium 3.3 L (3.5-5.1) mEq/L Chloride 101 (98-107) mEq/L Carbon Dioxide 27 (23-29) mEq/L BUN 12 (6-20) mg/dL Creatinine 0.69 L (0.70-1.30) mg/dL Est GFR ( Amer) > 60 (> 60) Est GFR (Non-Af Amer) > 60 (> 60) BUN/Creatinine Ratio 17 (6-26) Glucose 99 (70-105) mg/dL Calculated Osmolality 286 (280-300) Calcium 8.6 (8.6-10.3) mg/dL Total Bilirubin 0.4 (0.3-1.0) mg/dL AST 28 (13-39) Units/L ALT 45 (7-52) Units/L Alkaline Phosphatase 92 (34-104) Units/L Serum Total Protein 7.6 (6.4-8.9) g/dL Albumin 3.9 (3.5-5.7) g/dL Globulin 3.7 H (2.4-3.5) g/dL Albumin/Globulin Ratio 1.1 (1.1-2.2) Lipase 14 (11-82) Units/L TSH 3.902 (0.340-5.600) mcIU/mL Urine Color Yellow (Yellow) Urine Clarity Clear (Clear) Urine pH 7.0 (5.0-8.0) pH Units Ur Specific [place] 1.015 (1.010-1.025) Urine Protein 30 H (Neg-Trace) mg/dL Urine Glucose (UA) Normal (Normal) mg/dL Urine Ketones Negative (Negative) mg/dL Urine Blood Negative (Negative) Urine Nitrite Negative (Negative) Urine Bilirubin Negative (Negative) Urine Urobilinogen Normal (Normal) mg/dL Ur Leukocyte Esterase Negative (Negative) Urine Microscopic RBC 0-3 (0-3) per hpf Urine Microscopic WBC 3-5 H (0-3) per hpf Ur Squamous Epith Cells Many H (None-Few) per lpf Urine Bacteria None Seen (None-Few) per hpf Hyaline Casts None Seen (None-Few) per lpf Ur Culture Indicated? NO (NO) - Radiology Data Radiology results reviewed: Yes I reviewed the patient's radiology results. Head CT 11/09/17 20:46 IMPRESSION: No acute intracranial abnormality. D/ / Farida Henry Cha, MD / Farida Henry Cha, MD Interpreting Provider: Farida Henry Cha, MD
[2017-11-09 19:42] LABS: Basophils % 0.2 %; Eosinophils # 0.1 K/mcL (0.0-0.6); Eosinophils % 0.5 %; Hematocrit 39.2 % (37.5-50.1); Hemoglobin 13.7 g/dL (12.9-16.9); Immature Granulocytes % 0.4 % (0-4); Lymphocytes # 2.7 K/mcL (0.6-4.6); Lymphocytes % 20.7 %; Mean Corpuscular HGB Conc 34.9 g/dL (31.6-35.5); Mean Corpuscular Hemoglobin 30.5 pg (28.0-33.3); Mean Corpuscular Volume 87.3 fL (83.0-100.0); Mean Platelet Volume 9.8 fL (9.4-12.4); Monocytes # 0.8 K/mcL (0.0-1.3); Neutrophils # 9.4 K/mcL (1.6-8.9); Platelet Count 311 K/mcL (140-400); Red Blood Count 4.49 M/mcL (4.19-5.50); Red Cell Distribution Width 13.1 % (11.5-14.5); Segmented Neutrophils % 72.2 %
--- NOTE | 2017-11-09 19:51 | Emergency Department Note ---
Disposition Clinical Impression: Vertigo Nausea and vomiting Qualifiers: Vomiting type: unspecified Vomiting Intractability: non-intractable Qualified Code(s): R11.2 - Nausea with vomiting, unspecified Disposition: Admitted As Inpatient Condition: Fair General Adult HPI - General Chief complaint: ED Nausea/Vomiting/Diarrhea Stated complaint: NV Time Seen by Provider: 11/09/17 19:15 Source: patient, EMS Limitations: no limitations - History of Present Illness Pain Scale: 4 - Related Data Home Medications Medication Instructions Recorded Confirmed Amitriptyline [Elavil] 50 mg PO HS 10/27/17 11/09/17 Cyclobenzaprine [Flexeril] 10 mg PO BID 10/27/17 11/09/17 Enalapril Maleate [Vasotec] 20 mg PO BID 10/27/17 11/09/17 Ergocalciferol (VITAMIN D2) 50,000 unit PO QWEEK 10/27/17 11/09/17 [Vitamin D2] Levothyroxine Sodium [Levoxyl] 150 mcg PO DAILY 10/27/17 11/09/17 Oxycodone HCl/Acetaminophen 1 tab PO QID PRN 10/27/17 11/09/17 [Percocet 10-325 mg Tablet] Pravastatin Sodium [Pravachol] 20 mg PO DAILY 10/27/17 11/09/17 Testosterone Cypionate [Testone 200 mg IM QMONTH 10/27/17 11/09/17 Cik] clonazePAM [Klonopin] 2 mg PO QID PRN 10/27/17 11/09/17 Aspirin [Lo-Dose Aspirin EC] 81 mg PO DAILY 11/09/17 11/09/17 Cyanocobalamin (B-12) [Vitamin B12] 1,000 mcg IM QMONTH 11/09/17 11/09/17 amLODIPine [Norvasc] 5 mg PO BID 11/09/17 11/09/17 Previous Rx's Medication Instructions Recorded Omeprazole Magnesium [Prilosec Otc] 20 mg PO BID #60 tablet.dr 10/28/17 Ondansetron ODT [Zofran ODT] 4 mg SL Q6HR PRN #30 tab.rapdis 10/28/17 Metoprolol XL (24 HR) Succ [Toprol 12.5 mg PO DAILY #30 tab.er.24h 10/29/17 Xl] Allergies Allergy/AdvReac Type Severity Reaction Status Date / Time No Known Allergies Allergy Verified 10/26/17 22:16 Past Medical History - Past Medical History Medical history: Reports: arthritis, COPD, fibromyalgia, GERD, hyperlipidemia, hypertension Psychiatric history: Reports: anxiety - Social History Smoking Status: Former smoker Smokeless Tobacco Status: No Alcohol use: Reports: none Drug use: Reports: none Physical Exam - General Limitations: no limitations General appearance: alert, in no apparent distress Course Vital Signs Temperature 98.3 F 11/09/17 19:06 Pulse Rate 96 11/09/17 19:06 Respiratory Rate 16 11/09/17 19:06 Blood Pressure 164/114 11/09/17 19:06 O2 Sat by Pulse Oximetry 96 11/09/17 19:06 Temperature 98.3 F 11/09/17 19:06 Pulse Rate 82 11/09/17 22:00 Respiratory Rate 18 11/09/17 23:20 Blood Pressure 144/98 11/09/17 23:20 O2 Sat by Pulse Oximetry 96 11/09/17 22:00 Oxygen Delivery Oxygen Delivery Room Air Medical Decision Making - Lab Data Result diagrams: 11/09/17 19:25 11/09/17 19:25 Lab Results 11/09/17 11/09/17 11/09/17 Range/Units 19:25 19:25 19:59 WBC 13.0 H (4.3-11.1) K/mcL RBC 4.49 (4.19-5.50) M/mcL Hgb 13.7 (12.9-16.9) g/dL Hct 39.2 (37.5-50.1) % MCV 87.3 (83.0-100.0) fL MCH 30.5 (28.0-33.3) pg MCHC 34.9 (31.6-35.5) g/dL RDW 13.1 (11.5-14.5) % Plt Count 311 (140-400) K/mcL MPV 9.8 (9.4-12.4) fL Immature Gran % 0.4 (0-4) % Seg Neutrophils % 72.2 % Lymphocytes % 20.7 % Monocytes % 6.0 % Eosinophils % 0.5 % Basophils % 0.2 % Neutrophils # 9.4 H (1.6-8.9) K/mcL Lymphocytes # 2.7 (0.6-4.6) K/mcL Monocytes # 0.8 (0.0-1.3) K/mcL Eosinophils # 0.1 (0.0-0.6) K/mcL Basophils # 0.0 (0.0-0.2) K/mcL Sodium 138 (136-145) mEq/L Potassium 3.3 L (3.5-5.1) mEq/L Chloride 101 (98-107) mEq/L Carbon Dioxide 27 (23-29) mEq/L BUN 12 (6-20) mg/dL Creatinine 0.69 L (0.70-1.30) mg/dL Est GFR ( Amer) > 60 (> 60) Est GFR (Non-Af Amer) > 60 (> 60) BUN/Creatinine Ratio 17 (6-26) Glucose 99 (70-105) mg/dL Calculated Osmolality 286 (280-300) Calcium 8.6 (8.6-10.3) mg/dL Total Bilirubin 0.4 (0.3-1.0) mg/dL AST 28 (13-39) Units/L ALT 45 (7-52) Units/L Alkaline Phosphatase 92 (34-104) Units/L Serum Total Protein 7.6 (6.4-8.9) g/dL Albumin 3.9 (3.5-5.7) g/dL Globulin 3.7 H (2.4-3.5) g/dL Albumin/Globulin Ratio 1.1 (1.1-2.2) Lipase 14 (11-82) Units/L TSH 3.902 (0.340-5.600) mcIU/mL Urine Color Yellow (Yellow) Urine Clarity Clear (Clear) Urine pH 7.0 (5.0-8.0) pH Units Ur Specific [place] 1.015 (1.010-1.025) Urine Protein 30 H (Neg-Trace) mg/dL Urine Glucose (UA) Normal (Normal) mg/dL Urine Ketones Negative (Negative) mg/dL Urine Blood Negative (Negative) Urine Nitrite Negative (Negative) Urine Bilirubin Negative (Negative) Urine Urobilinogen Normal (Normal) mg/dL Ur Leukocyte Esterase Negative (Negative) Urine Microscopic RBC 0-3 (0-3) per hpf Urine Microscopic WBC 3-5 H (0-3) per hpf Ur Squamous Epith Cells Many H (None-Few) per lpf Urine Bacteria None Seen (None-Few) per hpf Hyaline Casts None Seen (None-Few) per lpf Ur Culture Indicated? NO (NO) Attestation Statement - Attestation Attestation: I examined this patient and my medical decision-making was reviewed with the Resident Physician. I agree with the documented findings, disposition and treatment plan as described except to the extent set forth below. Patient to the ED with nausea vomiting. EMS states is actively vomiting when they arrived. Patient was recently admitted for several days and worked up for the same complaint. He had an EGD that was unremarkable. He continues to have nausea and vomiting despite being on oral medications. He is on no distress on our evaluation. He has some mild left upper abdominal tenderness. Plan. Basic labs IV antiemetics. Patient's workup has been unremarkable. He still symptomatic. He is admitted for further workup.
[2017-11-09 19:58] LABS: Alanine Aminotransferase 45 Units/L (7-52); Albumin 3.9 g/dL (3.5-5.7); Albumin/Globulin Ratio 1.1 (1.1-2.2); Alkaline Phosphatase 92 Units/L (34-104); Aspartate Amino Transferase 28 Units/L (13-39); BUN/Creatinine Ratio 17 (6-26); Bilirubin,Total 0.4 mg/dL (0.3-1.0); Blood Urea Nitrogen 12 mg/dL (6-20); Calcium 8.6 mg/dL (8.6-10.3); Carbon Dioxide 27 mEq/L (23-29); Chloride 101 mEq/L (98-107); Globulin 3.7 g/dL (2.4-3.5); Glucose 99 mg/dL (70-105); Lipase 14 Units/L (11-82); Osmolality,Calculated 286 (280-300); Potassium 3.3 mEq/L (3.5-5.1); Sodium 138 mEq/L (136-145); Total Protein 7.6 g/dL (6.4-8.9); eGFR For African Americans > 60 (> 60); eGFR For Non-African Americans > 60 (> 60)
[2017-11-09 20:04] LABS: Bilirubin,Urine Negative (Negative); Blood,Urine Negative (Negative); Clarity,Urine Clear (Clear); Color,Urine Yellow (Yellow); Glucose,Urine (UA) Normal (Normal); Ketones,Urine Negative (Negative); Leukocyte Esterase,Urine Negative (Negative); Nitrite,Urine Negative (Negative); Protein,Urine 30 mg/dL (Neg-Trace); Specific Gravity,Urine 1.015 (1.010-1.025); Urobilinogen,Urine Normal (Normal)
[2017-11-09 20:05] LABS: Bacteria,Urine None Seen per hpf (None-Few); Hyaline Casts,Urine None Seen per lpf (None-Few); RBC,Urine 0-3 per hpf (0-3); Squamous Epithelial Cell,Urine Many per lpf (None-Few)
[2017-11-09 20:20] LABS: Thyroid Stimulating Hormone 3.902 mcIU/mL (0.340-5.600)
--- NOTE | 2017-11-09 22:57 | Internal Med History&Physical ---
Date of Encounter: 11/09/17 Time of Encounter: 22:49 Internal Medicine - H&P: HPI Chief complaint: nausea and vomiting Admitted From: Emergency Dept Plans for Post Hospital Care: Home History of present illness: Mr. De is a 42 year old male with history of questionable diagnosis of Crohn disease, hypertension, chronic pain syndrome, smoking, high cholesterol, and GERD who presents with nausea and vomiting. Patient was here in late October for similar complaints and was diagnosed with chronic gastritis and seen by GI and recommended conservative management with follow up with them in the outpatient setting. EGD report maricel NOONAN grade A esophagitis, enlarged gastric folds that were biopsied showing gastritis and small hiatal hernia seen. This time around symptoms started 2 days ago and really worsened today where he has not been able to keep PO down and has had continuous clear vomiting. He could not identify why he started having this. Before that he was able tolerate by mouth with no issues. When he left here last time he was told to be on clear liquid diet for a few days and advance as tolerated. He got to the point where he was eating regular diet until this setback. He also reports room spinning sensation with this. Worse with any head movement. Has ringing in the ears. Denies fever, chills, headache, blurry vision, chest pain, shortness of breath, diarrhea, constipation, urinary symptoms, or other neurological symptoms. He received anti-emetics and meclizine in the ED which helped. labs showed K of 3.3 and leukocytosis of 13. CT head was negative. BP was 164/114 on presentaion and was down to 133/97 upon my evaluation. Past Med Surg Social Fam HX - Past Medical History Medical history: arthritis, COPD, fibromyalgia, GERD, hyperlipidemia, hypertension Psychiatric history: anxiety - Social History Smoking Status: Former smoker Smokeless Tobacco Status: No Alcohol use: none Drug use: none - Family History Mother Living Status: Hx Family Cancer: Yes Father Living Status: Hx Family Cardiac Disorders: Yes Hx Family Cancer: Yes Hx Family Endocrine Disorder: Yes Internal Medicine - H&P: Meds Amitriptyline [Elavil] 50 mg PO HS 10/27/17 [History] Cyclobenzaprine [Flexeril] 10 mg PO BID 10/27/17 [History] Enalapril Maleate [Vasotec] 20 mg PO BID 10/27/17 [History] Ergocalciferol (VITAMIN D2) [Vitamin D2] 50,000 unit PO QWEEK 10/27/17 [History] Levothyroxine Sodium [Levoxyl] 150 mcg PO DAILY 10/27/17 [History] Oxycodone HCl/Acetaminophen [Percocet 10-325 mg Tablet] 1 tab PO QID PRN [History] Pravastatin Sodium [Pravachol] 20 mg PO DAILY 10/27/17 [History] Testosterone Cypionate [Testone Cik] 200 mg IM QMONTH 10/27/17 [History] clonazePAM [Klonopin] 2 mg PO QID PRN 10/27/17 [History] Omeprazole Magnesium [Prilosec Otc] 20 mg PO BID #60 tablet.dr 10/28/17 [Rx] Ondansetron ODT [Zofran ODT] 4 mg SL Q6HR PRN #30 tab.rapdis 10/28/17 [Rx] Metoprolol XL (24 HR) Succ [Toprol Xl] 12.5 mg PO DAILY #30 tab.er.24h 10/29/17 [Rx] Aspirin [Lo-Dose Aspirin EC] 81 mg PO DAILY 11/09/17 [History] Cyanocobalamin (B-12) [Vitamin B12] 1,000 mcg IM QMONTH 11/09/17 [History] amLODIPine [Norvasc] 5 mg PO BID 11/09/17 [History] 3 Allergy/AdvReac Type Severity Reaction Status Date / Time No Known Allergies Allergy Verified 10/26/17 22:16 All Systems PM: A 10-system review of systems was performed and is negative for pertinent findings except as documented above in the HPI. Review of systems: All systems reviewed are negative except as mentioned above - Constitutional Vitals: Temp Pulse Resp BP Pulse Ox 98.3 F 82 16 133/97 96 11/09/17 19:06 11/09/17 22:00 11/09/17 19:06 11/09/17 22:00 11/09/17 22:00 Exam: GEN: NAD HEENT: AT, NC, No cyanosis, oral mucosa is moist, No JVD Lymphatics: No lymphadenoapthy Eyes: Extrocular muscles intact, anicteric CVS:RRR. S1, S2, No m/r/g RESP: CTAB ABD: Soft, NT, ND, +BS EXT: No edema, No rashes, 2+ DP NEURO: Nonfocal, CN II-XII intact, No focal motor or sensory deficits Psych: Cooperative, Not anxious or depressed Internal Med - H&P Results - Labs CBC & Chem 7: 11/09/17 19:25 11/09/17 19:25 Labs: Short CBC 11/09/17 Range/Units 19:25 WBC 13.0 H (4.3-11.1) K/mcL Hgb 13.7 (12.9-16.9) g/dL Hct 39.2 (37.5-50.1) % Plt Count 311 (140-400) K/mcL Neutrophils # 9.4 H (1.6-8.9) K/mcL BMP 11/09/17 19:25 Sodium 138 Potassium 3.3 L Chloride 101 Carbon Dioxide 27 BUN 12 Creatinine 0.69 L Glucose 99 Calcium 8.6 Liver Function 11/09/17 Range/Units 19:25 Total Bilirubin 0.4 (0.3-1.0) mg/dL AST 28 (13-39) Units/L ALT 45 (7-52) Units/L Alkaline Phosphatase 92 (34-104) Units/L Albumin 3.9 (3.5-5.7) g/dL Urine 11/09/17 Range/Units 19:59 Urine Color Yellow (Yellow) Urine Clarity Clear (Clear) Urine pH 7.0 (5.0-8.0) pH Units Ur Specific [place] 1.015 (1.010-1.025) Urine Protein 30 H (Neg-Trace) mg/dL Urine Glucose (UA) Normal (Normal) mg/dL - Impressions ITS Impressions Head CT 11/09/17 20:46 IMPRESSION: No acute intracranial abnormality. D/ / Farida Henry Cha, MD / Farida Henry Cha, MD Interpreting Provider: Farida Henry Cha, MD - Assessment and plan (1) Nausea & vomiting Current Visit: No Status: Acute Assessment and plan: Patient had an extensive work up last time he was here. Had an EGD here and a CT abd/pelvis at [facility] before that both confirming gastritis. Likely gastritis/ esophagitis symptoms again. IV PPI for now. IV fluids. Anti-emetics. clear liquid diet and advance as tolerated. Qualifiers: Vomiting type: unspecified Vomiting Intractability: non-intractable Qualified Code(s): R11.2 - Nausea with vomiting, unspecified (2) Vertigo Current Visit: Yes Status: Acute Assessment and plan: Will treat symptomatically for now. Scheduled meclizine. check mri brain and rule out central vertigo (3) Leukocytosis Current Visit: No Status: Acute Assessment and plan: Likely reactive. afebrile. Will monitor. Qualifiers: Leukocytosis type: unspecified Qualified Code(s): D72.829 - Elevated white blood cell count, unspecified (4) Hypothyroidism Current Visit: Yes Status: Acute Assessment and plan: Normal TSH. c/w home dose synthroid Qualifiers: Hypothyroidism type: unspecified Qualified Code(s): E03.9 - Hypothyroidism , unspecified (5) HTN (hypertension) Current Visit: No Status: Chronic Assessment and plan: Resume home antihypertensives Qualifiers: Hypertension type: essential hypertension Qualified Code(s): I10 - Essential (primary) hypertension (6) Hypokalemia Current Visit: No Status: Acute Assessment and plan: Given K in ED. likely GI losses. Will check in am. (7) DVT prophylaxis Current Visit: Yes Status: Acute Assessment and plan: Heparin SQ - Time Spent With Patient Total time spent is greater than 50% in coordination of care (as documented) at patient's floor/unit and/or counseling patient:
[2017-11-09] MEDS ORDERED: Ondansetron 4 MG/2 ML VIAL IVP PRN (22:58)
[2017-11-09] MEDS ORDERED: Naloxone 0.4 MG/ML INJ IVP PRN (22:59)
[2017-11-09] MEDS ORDERED: Acetaminophen 325 MG TABLET PO PRN (22:59)
[2017-11-09] MEDS ORDERED: clonazePAM 1 MG TABLET PO PRN (23:00)
[2017-11-09] MEDS ORDERED: Cyanocobalamin (B-12) 1,000 MCG/ML VIAL IM SCH (23:00)
[2017-11-10] MEDS: Pantoprazole 40 MG VIAL IVP SCH ×2 (00:01→05:25)
[2017-11-10] MEDS: 0.9 % Sodium Chloride 1,000 ML IVC SCH ×2 (00:01→11:34)
[2017-11-10] MEDS: *HR* Heparin 5,000 UNIT/ML VIAL SQ SCH ×2 (05:24→14:33)
[2017-11-10 07:07] LABS: Basophils % 0.4 %; Eosinophils # 0.2 K/mcL (0.0-0.6); Hematocrit 37.1 % (37.5-50.1); Hemoglobin 12.6 g/dL (12.9-16.9); Immature Granulocytes % 0.3 % (0-4); Lymphocytes # 3.4 K/mcL (0.6-4.6); Lymphocytes % 35.4 %; Mean Corpuscular Hemoglobin 30.3 pg (28.0-33.3); Mean Corpuscular Volume 89.2 fL (83.0-100.0); Monocytes # 0.7 K/mcL (0.0-1.3); Monocytes % 7.7 %; Neutrophils # 5.2 K/mcL (1.6-8.9); Platelet Count 293 K/mcL (140-400); Red Blood Count 4.16 M/mcL (4.19-5.50); Red Cell Distribution Width 13.2 % (11.5-14.5); Segmented Neutrophils % 54.2 %
[2017-11-10 07:19] LABS: BUN/Creatinine Ratio 15 (6-26); Blood Urea Nitrogen 12 mg/dL (6-20); Calcium 8.1 mg/dL (8.6-10.3); Carbon Dioxide 27 mEq/L (23-29); Chloride 105 mEq/L (98-107); Glucose 92 mg/dL (70-105); Osmolality,Calculated 289 (280-300); Potassium 3.9 mEq/L (3.5-5.1); Sodium 140 mEq/L (136-145); eGFR For African Americans > 60 (> 60); eGFR For Non-African Americans > 60 (> 60)
[2017-11-10] MEDS ORDERED: NON-FORMULARY MEDICATION 1 EACH EACH (Omeprazole Magnesium [Prilosec Otc] 20 MG) PO SCH (09:00)
[2017-11-10] MEDS ORDERED: Metoprolol XL (24 HR) Succ 25 MG TAB.ER.24H PO SCH (09:00)
[2017-11-10] MEDS ORDERED: amLODIPine 5 MG TABLET PO SCH (09:00)
[2017-11-10] MEDS ORDERED: Aspirin Enteric Coated 81 MG Tablet PO SCH (09:00)
[2017-11-10] MEDS ORDERED: Lisinopril 20 MG TABLET PO SCH (09:00)
[2017-11-10 11:28] VITALS: BP 115/80
--- NOTE | 2017-11-10 14:39 | Discharge Summary ---
<Bjorn Carranza - Last Filed: 11/10/17 15:51> - NOTES TO OUTPATIENT PROVIDER Notes to Outpatient Provider: Unremarkable MRI of brain for dizziness. Improved with antivert. Date of Encounter: 11/10/17 Time of Encounter: 10:03 - Discharge Diagnosis (1) Nausea & vomiting Priority: Secondary Status: Acute Qualifiers: Vomiting type: unspecified Vomiting Intractability: non-intractable Qualified Code(s): R11.2 - Nausea with vomiting, unspecified (2) HTN (hypertension) Priority: Secondary Status: Chronic Qualifiers: Hypertension type: essential hypertension Qualified Code(s): I10 - Essential (primary) hypertension (3) Hypokalemia Priority: Secondary Status: Acute (4) Leukocytosis Priority: Secondary Status: Acute Qualifiers: Leukocytosis type: unspecified Qualified Code(s): D72.829 - Elevated white blood cell count, unspecified (5) Hypothyroidism Priority: Secondary Status: Chronic Qualifiers: Hypothyroidism type: unspecified Qualified Code(s): E03.9 - Hypothyroidism , unspecified (6) Vertigo Priority: Primary Status: Acute (7) DVT prophylaxis Priority: Secondary Status: Acute (8) BPPV (benign paroxysmal positional vertigo) Priority: Primary Status: Suspected Qualifiers: Laterality: unspecified laterality Qualified Code(s): H81.10 - Benign paroxysmal vertigo, unspecified ear Hospital course: Mr. De is a 42 year old male with past medical history of arthritis, COPD , fibromyalgia, hypertension, hyperlipidemia, reflux, anxiety presented to the emergency room with complaint of nausea, vomiting, dizziness 2 days. He states this has been going on more recently since the end of October but has been getting briskly worse. He was admitted and discharge on October 28 for a five- day hospital course for evaluation of nausea and vomiting. Symptoms are exacerbated when he moves his head and gets out of bed. Vital signs on presentation to emergency room significant for mildly elevated blood pressure 164/114. Results were significant for elevated WBC of 13.0, potassium 3.3 , otherwise unremarkable. He did obtain a head CT scan which was unremarkable. He was admitted to medicine service for further evaluation and management of nausea, vomiting, dizziness of unclear etiology. During course fossil stay, patient did gradually improve. He did undergo a head MRI which was negative for acute pathology or pathology that may explain his symptoms. On day #2 of hospital course she did admit to some tinnitus. Patient remained hemodynamically stable and lab results returned based on levels. He did receive supplement potassium. He states that with the addition of Antivert and Zofran, his symptoms did improve back to baseline. He will be discharged home in stable medical condition and instructed to follow-up with his primary care physician with a possible referral to neurologist as an outpatient for further evaluation and management of his chronic dizziness. All questions were answered and patient was eager for discharge home at this time. Discharge discussed with: patient, family - Time Spent with Patient Total time spent providing and/or coordinating discharge services: - Discharge Medications Prescriptions: Meclizine [Antivert] 25 mg PO TID PRN #20 tablet PRN Reason: Dizziness Home Medications: Amitriptyline [Elavil] 50 mg PO HS 10/27/17 [History] Cyclobenzaprine [Flexeril] 10 mg PO BID 10/27/17 [History] Enalapril Maleate [Vasotec] 20 mg PO BID 10/27/17 [History] Ergocalciferol (VITAMIN D2) [Vitamin D2] 50,000 unit PO QWEEK 10/27/17 [History] Levothyroxine Sodium [Levoxyl] 150 mcg PO DAILY 10/27/17 [History] Oxycodone HCl/Acetaminophen [Percocet 10-325 mg Tablet] 1 tab PO QID PRN [History] Pravastatin Sodium [Pravachol] 20 mg PO DAILY 10/27/17 [History] Testosterone Cypionate [Testone Cik] 200 mg IM QMONTH 10/27/17 [History] clonazePAM [Klonopin] 2 mg PO QID PRN 10/27/17 [History] Omeprazole Magnesium [Prilosec Otc] 20 mg PO BID #60 tablet. 10/28/17 [Rx] Ondansetron ODT [Zofran ODT] 4 mg SL Q6HR PRN #30 tab.rapdis 10/28/17 [Rx] Metoprolol XL (24 HR) Succ [Toprol Xl] 12.5 mg PO DAILY #30 tab.er.24h 10/29/17 [Rx] Aspirin [Lo-Dose Aspirin EC] 81 mg PO DAILY 11/09/17 [History] Cyanocobalamin (B-12) [Vitamin B12] 1,000 mcg IM QMONTH 11/09/17 [History] amLODIPine [Norvasc] 5 mg PO BID 11/09/17 [History] Meclizine [Antivert] 25 mg PO TID PRN #20 tablet 11/10/17 [Rx] Allergies/Adverse Reactions: 3 Allergy/AdvReac Type Severity Reaction Status Date / Time No Known Allergies Allergy Verified 10/26/17 22:16 Date of admission: 11/09/17 23:08 Primary care physician: Luis Cook MD Consults: 11/09/17 23:40 Consult to Nutrition [CONS] Routine Comment: Consulting Provider: NUTRITION Reason for Dietary Consult: Other Other:: weight loss Discharging clinician: Bjorn Carranza Anticipated date of discharge: 11/10/17 - Constitutional Vitals: Temp Pulse Resp BP Pulse Ox 98.1 F 71 16 115/80 98 11/10/17 11:26 11/10/17 11:26 11/10/17 11:26 11/10/17 11:26 11/10/17 11:26 Exam: Gen.: Vitals noted. No acute distress. AAOx3. Resting comfortably in bed HEENT: PERRL/EOMI, oropharynx clear, Normocephalic, atraumatic, moist mucous membranes Cardiac: RRR, no murmur, +S1/S2 Pulmonary: CTA bilaterally, no wheezes, rales or rhonchi, equal chest expansion Abdomen: soft, nontender, BS noted, no guarding MSK: ROM intact, no joint swelling noted. Muscle strength 5/5 in upper and lower extremities Extremities: no BLE edema, nontender calf, no cyanosis or clubbing Neuro: A&Ox3, moves all extremities, no focal deficits. Sensation intact, cranial nerves II through XII intact. Negative Jaycee-Hallpike maneuver Psych: Appropriate mood and behavior - Patient Status Disposition: Home, Self-Care Condition: Good Functional capacity at discharge: independent ambulation Overall status at discharge: patient is progressing back to baseline - Discharge Instructions Instructions: Vertigo (DC) Follow Up With: Luis Cook MD [Primary Care Provider] - (Patient stated "I already have a appoitment May 9th" ) Additional Instructions: Please follow up with your PCP as scheduled. Take all medication as prescribed. Do not drive if you become dizzy. - Diet and Activity Activity: increase activity as tolerated, return to work once cleared by your PCP/specialist, resume usual activities as tolerated Diet: advance to your usual diet <Yomi Calderón - Last Filed: 11/10/17 16:21> Date of Encounter: 11/10/17 - Discharge Diagnosis (1) BPPV (benign paroxysmal positional vertigo) Status: Suspected Qualifiers: Laterality: right Qualified Code(s): H81.11 - Benign paroxysmal vertigo, right ear (2) Nausea & vomiting Status: Resolved Qualifiers: Vomiting type: unspecified Vomiting Intractability: non-intractable Qualified Code(s): R11.2 - Nausea with vomiting, unspecified (3) HTN (hypertension) Status: Chronic Qualifiers: Hypertension type: essential hypertension Qualified Code(s): I10 - Essential (primary) hypertension (4) Hypokalemia Status: Resolved (5) Leukocytosis Status: Chronic Qualifiers: Leukocytosis type: unspecified Qualified Code(s): D72.829 - Elevated white blood cell count, unspecified (6) Hypothyroidism Status: Chronic Qualifiers: Hypothyroidism type: acquired Qualified Code(s): E03.9 - Hypothyroidism, unspecified (7) Vertigo Status: Resolved (8) DVT prophylaxis Status: Acute Hospital course: Mr. De is a 42 year old male - Time Spent with Patient Total time spent providing and/or coordinating discharge services: 37min Date of admission: 11/09/17 23:08 Primary care physician: Luis Cook MD Consults: 11/09/17 23:40 Consult to Nutrition [CONS] Routine Comment: Consulting Provider: NUTRITION Reason for Dietary Consult: Other Other:: weight loss - Constitutional Vitals: Temp Pulse Resp BP Pulse Ox 98.1 F 71 16 115/80 98 11/10/17 11:26 11/10/17 11:26 11/10/17 11:26 11/10/17 11:26 11/10/17 11:26 - Attending Attestation I examined this patient and my medical decision-making was reviewed with the Resident Physician on 11/10/17. I agree with the documented findings, disposition and treatment plan as described except to the extent set forth below. Mr De has been in observation for vertigo and intractable nausea and vomiting. He has improved with Antivert. MRI negative. He is currently afebrile and ready for discharge home. Exam Alert Comfortable Mucus membranes dry Heart reg No wheeze No nystagmus Plan D/C home today.
== END 2017-11-10 15:26 | disposition home or self-care (01) ==
LOC: 3ANU 19:04 → EMEROO 19:04 → SUATTDRO 23:08 → 3ANU 23:21
PROVIDERS: ADMIT Internal Medicine; ATTEND Internal Medicine

== ENCOUNTER 2019-05-05 19:01 | Observation (INO) ==
[2019-05-06 02:16] LABS: Basophils % 0.4 %; Eosinophils # 0.1 K/mcL (0.0-0.6); Eosinophils % 0.9 %; Hematocrit 36.5 % (37.5-50.1); Hemoglobin 13.3 g/dL (12.9-16.9); Immature Granulocytes % 0.6 % (0-4); Lymphocytes # 1.7 K/mcL (0.6-4.6); Lymphocytes % 25.4 %; Mean Corpuscular HGB Conc 36.4 g/dL (31.6-35.5); Mean Corpuscular Hemoglobin 31.4 pg (28.0-33.3); Mean Corpuscular Volume 86.1 fL (83.0-100.0); Mean Platelet Volume 9.8 fL (9.4-12.4); Monocytes # 0.5 K/mcL (0.0-1.3); Monocytes % 7.8 %; Neutrophils # 4.4 K/mcL (1.6-8.9); Platelet Count 217 K/mcL (140-400); Red Blood Count 4.24 M/mcL (4.19-5.50); Segmented Neutrophils % 64.9 %; White Blood Count 6.8 K/mcL (4.3-11.1)
[2019-05-06] MEDS ORDERED: Ondansetron 4 MG/2 ML VIAL IVP PRN (02:17)
[2019-05-06] MEDS ORDERED: Naloxone 0.4 MG/ML INJ IVP PRN (02:17)
[2019-05-06] MEDS ORDERED: *HR* Promethazine 25 MG/ML VIAL IVP PRN (02:17)
[2019-05-06 02:25] LABS: INR 1.1; Prothrombin Time 12.2 Seconds (9.4-12.1)
[2019-05-06 02:27] LABS: Activated Partial Thrombo Time 30.7 Seconds (26.0-36.0)
[2019-05-06 02:36] LABS: Alanine Aminotransferase 9 Units/L (7-52); Albumin 4.3 g/dL (3.5-5.7); Albumin/Globulin Ratio 1.4 (1.1-2.2); Alkaline Phosphatase 90 Units/L (34-104); Aspartate Amino Transferase 19 Units/L (13-39); BUN/Creatinine Ratio 13 (6-26); Bilirubin,Direct 0.1 mg/dL (0.0-0.2); Bilirubin,Indirect 0.3 mg/dL (0.0-1.0); Bilirubin,Total 0.4 mg/dL (0.3-1.0); Blood Urea Nitrogen 10 mg/dL (6-20); Calcium 8.9 mg/dL (8.6-10.3); Carbon Dioxide 21 mEq/L (23-29); Chloride 104 mEq/L (98-107); Globulin 3.1 g/dL (2.4-3.5); Glucose 96 mg/dL (70-105); Magnesium 1.6 mg/dL (1.6-2.6); Osmolality,Calculated 283 (280-300); Phosphorous 3.1 mg/dL (2.7-4.5); Sodium 137 mEq/L (136-145); Total Protein 7.4 g/dL (6.4-8.9); eGFR For African Americans > 60 (> 60); eGFR For Non-African Americans > 60 (> 60)
[2019-05-06] MEDS ORDERED: Potassium Chloride Elixir 20 MEQ/15 ML UDC PO ONE (02:45)
[2019-05-06 03:03] LABS: Amphetamine Screen,Urine Negative ng/mL (Cutoff=1000); Barbiturate Screen,Urine Negative ng/mL (Cutoff=200); Benzodiazepines Screen,Urine Negative ng/mL (Cutoff=200); Cannabinoid Screen,Urine Negative ng/mL (Cutoff = 50); Cocaine Screen,Urine Negative ng/mL (Cutoff= 300); Opiate Screen,Urine Negative ng/mL (Cutoff=300); Phencyclidine Screen,Urine Negative ng/mL (Cutoff=25)
[2019-05-06 03:25] LABS: Thyroid Stimulating Hormone 0.824 mcIU/mL (0.340-5.600)
[2019-05-06] MEDS: Ringers Solution, Lactated 1,000 ML IVC SCH ×2 (04:08→16:46)
[2019-05-06] MEDS: Acetaminophen 325 MG TABLET PO PRN (04:53)
[2019-05-06] MEDS: *HR* Heparin 5,000 UNIT/ML VIAL SQ SCH ×2 (06:12→16:56)
[2019-05-06] MEDS: amLODIPine 5 MG TABLET PO SCH (08:43)
[2019-05-06] MEDS ORDERED: amLODIPine 5 MG TABLET PO SCH (09:00)
[2019-05-06] MEDS ORDERED: Metoprolol XL (24 HR) Succ 25 MG TAB.ER.24H PO SCH (09:00)
[2019-05-06] MEDS ORDERED: clonazePAM 1 MG TABLET PO PRN (11:19)
[2019-05-06] MEDS ORDERED: *HR* OxyCODONE/APAP 10/325 TABLET PO PRN (11:19)
[2019-05-06 15:54] LABS: BUN/Creatinine Ratio 10 (6-26); Blood Urea Nitrogen 8 mg/dL (6-20); Calcium 8.9 mg/dL (8.6-10.3); Carbon Dioxide 23 mEq/L (23-29); Chloride 106 mEq/L (98-107); Glucose 91 mg/dL (70-105); Magnesium 1.4 mg/dL (1.6-2.6); Osmolality,Calculated 286 (280-300); Potassium 3.3 mEq/L (3.5-5.1); Sodium 139 mEq/L (136-145); eGFR For African Americans > 60 (> 60); eGFR For Non-African Americans > 60 (> 60)
[2019-05-06] MEDS: Magnesium Oxide 400 MG TABLET PO SCH ×2 (16:56→19:56)
[2019-05-06] MEDS: Lisinopril 20 MG TABLET PO SCH (19:55)
[2019-05-06] MEDS: Metoprolol 100 MG TABLET PO SCH (19:55)
[2019-05-07] MEDS: *HR* Heparin 5,000 UNIT/ML VIAL SQ SCH ×2 (04:36→16:47)
[2019-05-07 05:26] LABS: BUN/Creatinine Ratio 10 (6-26); Blood Urea Nitrogen 9 mg/dL (6-20); Carbon Dioxide 25 mEq/L (23-29); Chloride 105 mEq/L (98-107); Glucose 89 mg/dL (70-105); Magnesium 1.3 mg/dL (1.6-2.6); Osmolality,Calculated 284 (280-300); Potassium 3.9 mEq/L (3.5-5.1); Sodium 138 mEq/L (136-145); eGFR For African Americans > 60 (> 60); eGFR For Non-African Americans > 60 (> 60)
[2019-05-07 05:30] LABS: Hematocrit 35.7 % (37.5-50.1); Hemoglobin 12.6 g/dL (12.9-16.9); Mean Corpuscular HGB Conc 35.3 g/dL (31.6-35.5); Mean Corpuscular Hemoglobin 31.4 pg (28.0-33.3); Mean Platelet Volume 10.2 fL (9.4-12.4); Platelet Count 213 K/mcL (140-400); Red Blood Count 4.01 M/mcL (4.19-5.50); Red Cell Distribution Width 13.2 % (11.5-14.5); White Blood Count 5.5 K/mcL (4.3-11.1)
[2019-05-07] MEDS: amLODIPine 5 MG TABLET PO SCH (07:46)
[2019-05-07] MEDS: Lisinopril 20 MG TABLET PO SCH ×2 (07:46→20:04)
[2019-05-07] MEDS: Metoprolol 100 MG TABLET PO SCH ×2 (07:46→20:04)
[2019-05-07] MEDS: Magnesium Oxide 400 MG TABLET PO SCH ×3 (07:46→20:05)
[2019-05-07] MEDS: Acetaminophen 325 MG TABLET PO PRN (20:12)
[2019-05-08 04:47] LABS: Hematocrit 36.3 % (37.5-50.1); Hemoglobin 12.3 g/dL (12.9-16.9); Mean Corpuscular HGB Conc 33.9 g/dL (31.6-35.5); Mean Corpuscular Hemoglobin 31.2 pg (28.0-33.3); Mean Corpuscular Volume 92.1 fL (83.0-100.0); Platelet Count 190 K/mcL (140-400); Red Blood Count 3.94 M/mcL (4.19-5.50); Red Cell Distribution Width 12.9 % (11.5-14.5); White Blood Count 5.5 K/mcL (4.3-11.1)
[2019-05-08 05:00] LABS: BUN/Creatinine Ratio 13 (6-26); Blood Urea Nitrogen 12 mg/dL (6-20); Calcium 9.3 mg/dL (8.6-10.3); Carbon Dioxide 25 mEq/L (23-29); Chloride 105 mEq/L (98-107); Glucose 92 mg/dL (70-105); Magnesium 1.7 mg/dL (1.6-2.6); Osmolality,Calculated 285 (280-300); Sodium 138 mEq/L (136-145); eGFR For African Americans > 60 (> 60); eGFR For Non-African Americans > 60 (> 60)
[2019-05-08] MEDS: *HR* Heparin 5,000 UNIT/ML VIAL SQ SCH (05:03)
[2019-05-08] MEDS: Magnesium Oxide 400 MG TABLET PO SCH (07:45)
[2019-05-08] MEDS: amLODIPine 5 MG TABLET PO SCH (07:45)
[2019-05-08] MEDS: Metoprolol 100 MG TABLET PO SCH (07:45)
[2019-05-08] MEDS: Lisinopril 20 MG TABLET PO SCH (07:46)
[2019-05-08] MEDS ORDERED: *HR* Propofol 200 MG/20 ML VIAL IVP ONE (13:29)
[2019-05-08 15:40] VITALS: BP 128/97
== END 2019-05-08 16:41 | disposition home or self-care (01) ==
LOC: 2NNU → SUATTDRO 05-06 00:39 → 2NENU 05-07 05:21
PROVIDERS: ADMIT Student in an Organized Health Care Education/Training Program; ATTEND Internal Medicine
PROC: ENDOEBX (2019-05-08 14:30)

== ENCOUNTER 2019-05-28 13:08 | Observation (INO) ==
[2019-05-28] MEDS ORDERED: Naloxone 0.4 MG/ML INJ IVP PRN (15:23)
[2019-05-28] MEDS: Ondansetron 4 MG/2 ML VIAL IVP PRN (17:21)
[2019-05-29 06:53] LABS: Basophils % 0.4 %; Eosinophils # 0.3 K/mcL (0.0-0.6); Eosinophils % 3.3 %; Hematocrit 35.9 % (37.5-50.1); Hemoglobin 12.7 g/dL (12.9-16.9); Immature Granulocytes % 0.4 % (0-4); Lymphocytes # 2.2 K/mcL (0.6-4.6); Lymphocytes % 27.1 %; Mean Corpuscular HGB Conc 35.4 g/dL (31.6-35.5); Mean Corpuscular Hemoglobin 31.5 pg (28.0-33.3); Mean Corpuscular Volume 89.1 fL (83.0-100.0); Mean Platelet Volume 9.7 fL (9.4-12.4); Monocytes # 0.7 K/mcL (0.0-1.3); Monocytes % 8.2 %; Neutrophils # 4.8 K/mcL (1.6-8.9); Platelet Count 250 K/mcL (140-400); Red Blood Count 4.03 M/mcL (4.19-5.50); Red Cell Distribution Width 13.5 % (11.5-14.5); Segmented Neutrophils % 60.6 %; White Blood Count 7.9 K/mcL (4.3-11.1)
[2019-05-29 07:23] LABS: BUN/Creatinine Ratio 13 (6-26); Blood Urea Nitrogen 11 mg/dL (6-20); Calcium 9.1 mg/dL (8.6-10.3); Carbon Dioxide 24 mEq/L (23-29); Chloride 104 mEq/L (98-107); Chol/HDL Ratio 6.6 (0-4.9); Cholesterol 211 mg/dL (< 200); Glucose 96 mg/dL (70-105); HDL Cholesterol 32 mg/dL (40-59); LDL Cholesterol,Calculated 131 mg/dL (0-99); Magnesium 1.9 mg/dL (1.6-2.6); Osmolality,Calculated 287 (280-300); Potassium 3.9 mEq/L (3.5-5.1); Sodium 139 mEq/L (136-145); Triglycerides 240 mg/dL (< 150); eGFR For African Americans > 60 (> 60); eGFR For Non-African Americans > 60 (> 60)
[2019-05-29] MEDS ORDERED: Cyanocobalamin (B-12) 1,000 MCG/ML VIAL IM SCH (07:45)
[2019-05-29] MEDS: amLODIPine 5 MG TABLET PO SCH (09:10)
[2019-05-29] MEDS: Aspirin Enteric Coated 81 MG Tablet PO SCH (09:10)
[2019-05-29] MEDS: Metoprolol 100 MG TABLET PO SCH ×2 (09:11→21:25)
[2019-05-29 09:48] LABS: Estimated Average Glucose 114 mg/dl
[2019-05-29] MEDS: Magnesium Oxide 400 MG TABLET PO SCH ×2 (15:15→21:24)
[2019-05-29] MEDS: Ondansetron 4 MG/2 ML VIAL IVP PRN (15:15)
[2019-05-30 06:02] LABS: Hematocrit 34.9 % (37.5-50.1); Hemoglobin 12.4 g/dL (12.9-16.9); Mean Corpuscular HGB Conc 35.5 g/dL (31.6-35.5); Mean Corpuscular Hemoglobin 31.5 pg (28.0-33.3); Mean Corpuscular Volume 88.6 fL (83.0-100.0); Mean Platelet Volume 10.1 fL (9.4-12.4); Platelet Count 260 K/mcL (140-400); Red Blood Count 3.94 M/mcL (4.19-5.50); Red Cell Distribution Width 13.5 % (11.5-14.5); White Blood Count 8.2 K/mcL (4.3-11.1)
[2019-05-30 06:28] LABS: BUN/Creatinine Ratio 17 (6-26); Blood Urea Nitrogen 17 mg/dL (6-20); Calcium 9.5 mg/dL (8.6-10.3); Carbon Dioxide 25 mEq/L (23-29); Chloride 103 mEq/L (98-107); Glucose 97 mg/dL (70-105); Magnesium 1.4 mg/dL (1.6-2.6); Osmolality,Calculated 287 (280-300); Phosphorous 2.6 mg/dL (2.7-4.5); Potassium 4.3 mEq/L (3.5-5.1); Sodium 138 mEq/L (136-145); eGFR For African Americans > 60 (> 60); eGFR For Non-African Americans > 60 (> 60)
[2019-05-30 07:27] VITALS: BP 145/96
[2019-05-30] MEDS ORDERED: Lisinopril 20 MG TABLET PO SCH (09:00)
[2019-05-30] MEDS: Metoprolol 100 MG TABLET PO SCH (09:53)
[2019-05-30] MEDS: amLODIPine 5 MG TABLET PO SCH (09:53)
[2019-05-30] MEDS: Aspirin Enteric Coated 81 MG Tablet PO SCH (09:54)
[2019-05-30] MEDS: Magnesium Oxide 400 MG TABLET PO SCH (09:54)
== END 2019-05-30 12:07 | disposition home or self-care (01) ==
LOC: 3BNU → SUATTDRO 15:07
PROVIDERS: ADMIT Family Medicine; ATTEND Internal Medicine

== ENCOUNTER 2019-06-14 20:31 | Inpatient (IN) ==
[2019-06-14] MEDS: Ketorolac 30 MG/ML VIAL IVP PRN (22:58)
[2019-06-14] MEDS: Ringers Solution, Lactated 1,000 ML IVC SCH (22:59)
[2019-06-14] MEDS ORDERED: Famotidine 20 MG/2 ML VIAL IVP ONE (23:10)
[2019-06-14 23:38] LABS: Basophils % 0.3 %; Eosinophils % 0.2 %; Hematocrit 35.2 % (37.5-50.1); Hemoglobin 12.3 g/dL (12.9-16.9); Immature Granulocytes % 0.6 % (0-4); Lymphocytes # 1.7 K/mcL (0.6-4.6); Lymphocytes % 12.3 %; Mean Corpuscular HGB Conc 34.9 g/dL (31.6-35.5); Mean Corpuscular Hemoglobin 31.2 pg (28.0-33.3); Mean Corpuscular Volume 89.3 fL (83.0-100.0); Monocytes # 0.9 K/mcL (0.0-1.3); Monocytes % 6.8 %; Platelet Count 224 K/mcL (140-400); Red Blood Count 3.94 M/mcL (4.19-5.50); Red Cell Distribution Width 13.6 % (11.5-14.5); Segmented Neutrophils % 79.8 %; White Blood Count 13.8 K/mcL (4.3-11.1)
[2019-06-14 23:48] LABS: Activated Partial Thrombo Time 29.4 Seconds (26.0-36.0)
[2019-06-15] LABS: INR 1.3; Prothrombin Time 14.5 Seconds (9.4-12.1)
[2019-06-15 00:02] LABS: Alanine Aminotransferase 39 Units/L (7-52); Albumin 3.8 g/dL (3.5-5.7); Albumin/Globulin Ratio 1.2 (1.1-2.2); Alkaline Phosphatase 126 Units/L (34-104); Aspartate Amino Transferase 62 Units/L (13-39); BUN/Creatinine Ratio 12 (6-26); Bilirubin,Direct 0.4 mg/dL (0.0-0.2); Bilirubin,Indirect 0.4 mg/dL (0.0-1.0); Bilirubin,Total 0.8 mg/dL (0.3-1.0); Blood Urea Nitrogen 11 mg/dL (6-20); Calcium 8.1 mg/dL (8.6-10.3); Carbon Dioxide 20 mEq/L (23-29); Chloride 105 mEq/L (98-107); Globulin 3.2 g/dL (2.4-3.5); Glucose 107 mg/dL (70-105); Magnesium < 0.5 mg/dL (1.6-2.6); Osmolality,Calculated 288 (280-300); Potassium 3.2 mEq/L (3.5-5.1); Sodium 139 mEq/L (136-145); eGFR For African Americans > 60 (> 60); eGFR For Non-African Americans > 60 (> 60)
[2019-06-15] MEDS: Piperacillin/Tazobactam 3.375 GM in 0.9 % Sodium Chloride Mini Bag 100 ML IVPB SCH ×3 (00:05→15:38)
[2019-06-15] MEDS ORDERED: Potassium Chloride 40 MEQ, Lidocaine 1% 2 ML in 0.9 % Sodium Chloride 500 ML IVPB ONE (01:51)
[2019-06-15] MEDS: *HR* Promethazine 25 MG/ML VIAL IVP PRN ×3 (03:39→22:55)
[2019-06-15] MEDS: Ringers Solution, Lactated 1,000 ML IVC SCH (04:05)
[2019-06-15] MEDS ORDERED: *HR* Heparin 5,000 UNIT/ML VIAL SQ SCH (06:00)
[2019-06-15] MEDS: Pantoprazole 40 MG VIAL IVP SCH (08:01)
[2019-06-15] MEDS: Ketorolac 30 MG/ML VIAL IVP PRN (10:28)
[2019-06-15] MEDS: Ondansetron 4 MG/2 ML VIAL IVP PRN (12:47)
[2019-06-15 14:27] LABS: Basophils % 0.3 %; Eosinophils # 0.1 K/mcL (0.0-0.6); Hemoglobin 11.6 g/dL (12.9-16.9); Immature Granulocytes % 0.4 % (0-4); Lymphocytes % 17.8 %; Mean Corpuscular HGB Conc 35.2 g/dL (31.6-35.5); Mean Corpuscular Hemoglobin 31.9 pg (28.0-33.3); Mean Corpuscular Volume 90.7 fL (83.0-100.0); Mean Platelet Volume 10.1 fL (9.4-12.4); Monocytes # 0.7 K/mcL (0.0-1.3); Monocytes % 6.7 %; Neutrophils # 8.2 K/mcL (1.6-8.9); Platelet Count 228 K/mcL (140-400); Red Blood Count 3.64 M/mcL (4.19-5.50); Red Cell Distribution Width 13.8 % (11.5-14.5); Segmented Neutrophils % 73.8 %; White Blood Count 11.1 K/mcL (4.3-11.1)
[2019-06-15 14:44] LABS: BUN/Creatinine Ratio 10 (6-26); Blood Urea Nitrogen 10 mg/dL (6-20); Carbon Dioxide 23 mEq/L (23-29); Chloride 107 mEq/L (98-107); Glucose 84 mg/dL (70-105); Osmolality,Calculated 286 (280-300); Potassium 3.5 mEq/L (3.5-5.1); Sodium 139 mEq/L (136-145); eGFR For African Americans > 60 (> 60); eGFR For Non-African Americans > 60 (> 60)
[2019-06-15] MEDS ORDERED: Scopolamine Patch 1.5 MG PATCH.TD72 TD SCH (15:30)
[2019-06-15] MEDS: Acetaminophen IV 1,000 MG/100 ML INFUS..BTL IVPB SCH (17:30)
[2019-06-15] MEDS: Metoprolol 100 MG TABLET PO SCH (22:57)
[2019-06-15] MEDS: Magnesium Oxide 400 MG TABLET PO SCH (22:57)
[2019-06-15] MEDS: clonazePAM 1 MG TABLET PO SCH (22:57)
[2019-06-16] MEDS: Acetaminophen IV 1,000 MG/100 ML INFUS..BTL IVPB SCH ×4 (00:23→17:52)
[2019-06-16] MEDS: Piperacillin/Tazobactam 3.375 GM in 0.9 % Sodium Chloride Mini Bag 100 ML IVPB SCH ×3 (00:23→16:40)
[2019-06-16 04:31] LABS: Basophils % 0.3 %; Eosinophils # 0.2 K/mcL (0.0-0.6); Hematocrit 32.4 % (37.5-50.1); Immature Granulocytes % 0.5 % (0-4); Lymphocytes # 1.9 K/mcL (0.6-4.6); Lymphocytes % 17.9 %; Mean Corpuscular Hemoglobin 31.4 pg (28.0-33.3); Mean Corpuscular Volume 92.6 fL (83.0-100.0); Mean Platelet Volume 9.8 fL (9.4-12.4); Monocytes # 0.7 K/mcL (0.0-1.3); Monocytes % 6.2 %; Neutrophils # 7.9 K/mcL (1.6-8.9); Platelet Count 210 K/mcL (140-400); Red Cell Distribution Width 13.7 % (11.5-14.5); Segmented Neutrophils % 73.1 %; White Blood Count 10.8 K/mcL (4.3-11.1)
[2019-06-16 04:40] LABS: BUN/Creatinine Ratio 9 (6-26); Blood Urea Nitrogen 8 mg/dL (6-20); Carbon Dioxide 24 mEq/L (23-29); Chloride 104 mEq/L (98-107); Glucose 86 mg/dL (70-105); Magnesium 0.7 mg/dL (1.6-2.6); Osmolality,Calculated 286 (280-300); Phosphorous 2.6 mg/dL (2.7-4.5); Potassium 3.5 mEq/L (3.5-5.1); Sodium 139 mEq/L (136-145); eGFR For African Americans > 60 (> 60); eGFR For Non-African Americans > 60 (> 60)
[2019-06-16] MEDS ORDERED: Ergocalciferol (VIT D2) 50,000 UNIT (1.25MG) CAP PO SCH (09:00)
[2019-06-16] MEDS: Pantoprazole 40 MG VIAL IVP SCH (09:07)
[2019-06-16] MEDS: amLODIPine 5 MG TABLET PO SCH (09:08)
[2019-06-16] MEDS: Magnesium Oxide 400 MG TABLET PO SCH ×3 (09:08→21:33)
[2019-06-16] MEDS: Metoprolol 100 MG TABLET PO SCH ×2 (09:08→21:34)
[2019-06-16] MEDS: Aspirin Enteric Coated 81 MG Tablet PO SCH (09:08)
[2019-06-16] MEDS ORDERED: Isovue-370 500 ML BOTTLE IVP ONE (11:29)
[2019-06-16] MEDS: 0.9 % Sodium Chloride 1,000 ML IVC SCH (13:28)
[2019-06-16] MEDS: clonazePAM 1 MG TABLET PO SCH (21:34)
[2019-06-17] MEDS: Acetaminophen IV 1,000 MG/100 ML INFUS..BTL IVPB SCH ×4 (00:15→17:51)
[2019-06-17] MEDS: Piperacillin/Tazobactam 3.375 GM in 0.9 % Sodium Chloride Mini Bag 100 ML IVPB SCH ×3 (00:32→16:28)
[2019-06-17] MEDS: *HR* Promethazine 25 MG/ML VIAL IVP PRN (00:54)
[2019-06-17] MEDS: Ondansetron 4 MG/2 ML VIAL IVP PRN (02:18)
[2019-06-17] MEDS: 0.9 % Sodium Chloride 1,000 ML IVC SCH (03:05)
[2019-06-17 06:31] LABS: Basophils % 0.6 %; Eosinophils # 0.2 K/mcL (0.0-0.6); Eosinophils % 3.6 %; Hematocrit 31.9 % (37.5-50.1); Hemoglobin 11.1 g/dL (12.9-16.9); Immature Granulocytes % 0.5 % (0-4); Lymphocytes # 2.1 K/mcL (0.6-4.6); Lymphocytes % 31.1 %; Mean Corpuscular HGB Conc 34.8 g/dL (31.6-35.5); Mean Corpuscular Hemoglobin 31.1 pg (28.0-33.3); Mean Corpuscular Volume 89.4 fL (83.0-100.0); Mean Platelet Volume 10.2 fL (9.4-12.4); Monocytes # 0.5 K/mcL (0.0-1.3); Monocytes % 6.9 %; Neutrophils # 3.8 K/mcL (1.6-8.9); Platelet Count 225 K/mcL (140-400); Red Blood Count 3.57 M/mcL (4.19-5.50); Red Cell Distribution Width 13.4 % (11.5-14.5); Segmented Neutrophils % 57.3 %; White Blood Count 6.6 K/mcL (4.3-11.1)
[2019-06-17 06:57] LABS: BUN/Creatinine Ratio 8 (6-26); Blood Urea Nitrogen 8 mg/dL (6-20); Calcium 7.7 mg/dL (8.6-10.3); Carbon Dioxide 24 mEq/L (23-29); Chloride 104 mEq/L (98-107); Glucose 86 mg/dL (70-105); Osmolality,Calculated 288 (280-300); Potassium 3.7 mEq/L (3.5-5.1); Sodium 140 mEq/L (136-145); eGFR For African Americans > 60 (> 60); eGFR For Non-African Americans > 60 (> 60)
[2019-06-17] MEDS: Pantoprazole 40 MG VIAL IVP SCH (08:35)
[2019-06-17] MEDS: Magnesium Oxide 400 MG TABLET PO SCH ×3 (08:35→20:28)
[2019-06-17] MEDS: amLODIPine 5 MG TABLET PO SCH (08:36)
[2019-06-17] MEDS: Aspirin Enteric Coated 81 MG Tablet PO SCH (08:36)
[2019-06-17] MEDS: Lisinopril 20 MG TABLET PO SCH (08:36)
[2019-06-17] MEDS: Metoprolol 100 MG TABLET PO SCH ×2 (08:38→20:27)
[2019-06-17] MEDS ORDERED: Calcium Gluconate 2,000 MG in 0.9 % Sodium Chloride 100 ML IVPB ONE (08:57)
[2019-06-17] MEDS: D5% in Lactated Ringers 1,000 ML IVC SCH (12:53)
[2019-06-17 13:10] LABS: Magnesium 1.1 mg/dL (1.6-2.6); Phosphorous 2.7 mg/dL (2.7-4.5)
[2019-06-17] MEDS: clonazePAM 1 MG TABLET PO SCH (20:27)
[2019-06-18] MEDS: Acetaminophen IV 1,000 MG/100 ML INFUS..BTL IVPB SCH ×2 (00:54→05:38)
[2019-06-18] MEDS: Piperacillin/Tazobactam 3.375 GM in 0.9 % Sodium Chloride Mini Bag 100 ML IVPB SCH ×3 (00:54→17:42)
[2019-06-18 05:00] LABS: Basophils % 0.6 %; Eosinophils # 0.3 K/mcL (0.0-0.6); Hematocrit 34.5 % (37.5-50.1); Hemoglobin 11.9 g/dL (12.9-16.9); Immature Granulocytes % 0.5 % (0-4); Lymphocytes # 2.5 K/mcL (0.6-4.6); Lymphocytes % 38.2 %; Mean Corpuscular HGB Conc 34.5 g/dL (31.6-35.5); Mean Corpuscular Hemoglobin 31.2 pg (28.0-33.3); Mean Corpuscular Volume 90.3 fL (83.0-100.0); Mean Platelet Volume 9.9 fL (9.4-12.4); Monocytes # 0.5 K/mcL (0.0-1.3); Monocytes % 7.9 %; Neutrophils # 3.2 K/mcL (1.6-8.9); Platelet Count 253 K/mcL (140-400); Red Blood Count 3.82 M/mcL (4.19-5.50); Red Cell Distribution Width 13.5 % (11.5-14.5); Segmented Neutrophils % 48.8 %; White Blood Count 6.5 K/mcL (4.3-11.1)
[2019-06-18 05:12] LABS: VBG Ionized Calcium 1.11 mmol/L (1.15-1.35)
[2019-06-18 05:18] LABS: BUN/Creatinine Ratio 5 (6-26); Blood Urea Nitrogen 5 mg/dL (6-20); Calcium 8.6 mg/dL (8.6-10.3); Carbon Dioxide 26 mEq/L (23-29); Chloride 104 mEq/L (98-107); Glucose 92 mg/dL (70-105); Osmolality,Calculated 287 (280-300); Potassium 3.6 mEq/L (3.5-5.1); Sodium 140 mEq/L (136-145); eGFR For African Americans > 60 (> 60); eGFR For Non-African Americans > 60 (> 60)
[2019-06-18 05:21] LABS: Magnesium 1.5 mg/dL (1.6-2.6); Phosphorous 2.8 mg/dL (2.7-4.5)
[2019-06-18] MEDS: Metoprolol 100 MG TABLET PO SCH ×2 (08:49→20:30)
[2019-06-18] MEDS: Pantoprazole 40 MG VIAL IVP SCH (08:49)
[2019-06-18] MEDS: Lisinopril 20 MG TABLET PO SCH (08:49)
[2019-06-18] MEDS: Aspirin Enteric Coated 81 MG Tablet PO SCH (08:50)
[2019-06-18] MEDS: amLODIPine 5 MG TABLET PO SCH (08:50)
[2019-06-18] MEDS: Magnesium Oxide 400 MG TABLET PO SCH ×3 (08:50→20:30)
[2019-06-18] MEDS: clonazePAM 1 MG TABLET PO PRN (08:58)
[2019-06-18] MEDS: D5% in Lactated Ringers 1,000 ML IVC SCH (08:58)
[2019-06-18] MEDS: Ketorolac 30 MG/ML VIAL IVP PRN ×2 (10:47→20:31)
[2019-06-18] MEDS: Ondansetron 4 MG/2 ML VIAL IVP PRN (10:47)
[2019-06-18] MEDS: clonazePAM 1 MG TABLET PO SCH (20:30)
[2019-06-18] MEDS: *HR* Promethazine 25 MG/ML VIAL IVP PRN (20:32)
[2019-06-19] MEDS: Piperacillin/Tazobactam 3.375 GM in 0.9 % Sodium Chloride Mini Bag 100 ML IVPB SCH ×4 (01:07→23:20)
[2019-06-19] MEDS: D5% in Lactated Ringers 1,000 ML IVC SCH ×2 (01:08→10:43)
[2019-06-19] MEDS: Ketorolac 30 MG/ML VIAL IVP PRN (05:46)
[2019-06-19] MEDS: *HR* Promethazine 25 MG/ML VIAL IVP PRN (05:47)
[2019-06-19] MEDS: Magnesium Oxide 400 MG TABLET PO SCH ×3 (10:27→20:52)
[2019-06-19] MEDS: Metoprolol 100 MG TABLET PO SCH ×2 (10:27→20:52)
[2019-06-19] MEDS: Lisinopril 20 MG TABLET PO SCH (10:27)
[2019-06-19] MEDS: Aspirin Enteric Coated 81 MG Tablet PO SCH (10:27)
[2019-06-19] MEDS: amLODIPine 5 MG TABLET PO SCH (10:27)
[2019-06-19] MEDS: clonazePAM 1 MG TABLET PO PRN (10:43)
[2019-06-19] MEDS ORDERED: Scopolamine Patch 1.5 MG PATCH.TD72 TD SCH (13:15)
[2019-06-19] MEDS: clonazePAM 1 MG TABLET PO SCH (20:52)
[2019-06-20] MEDS: Aspirin Enteric Coated 81 MG Tablet PO SCH (09:54)
[2019-06-20] MEDS: amLODIPine 5 MG TABLET PO SCH (09:54)
[2019-06-20] MEDS: Lisinopril 20 MG TABLET PO SCH (09:54)
[2019-06-20] MEDS: Magnesium Oxide 400 MG TABLET PO SCH (09:54)
[2019-06-20] MEDS: Piperacillin/Tazobactam 3.375 GM in 0.9 % Sodium Chloride Mini Bag 100 ML IVPB SCH (09:54)
[2019-06-20] MEDS: Metoprolol 100 MG TABLET PO SCH (09:54)
[2019-06-20] MEDS: clonazePAM 1 MG TABLET PO PRN (10:05)
[2019-06-20] MEDS ORDERED: *HR* OxyCODONE/APAP 10/325 TABLET PO PRN (10:22)
[2019-06-20 10:26] LABS: Bilirubin,Urine Negative (Negative); Blood,Urine Negative (Negative); Clarity,Urine Clear (Clear); Color,Urine Yellow (Yellow); Glucose,Urine (UA) Normal (Normal); Ketones,Urine Negative (Negative); Leukocyte Esterase,Urine Negative (Negative); Nitrite,Urine Negative (Negative); PH,Urine 7.5 pH Units (5.0-8.0); Protein,Urine Negative (Neg-Trace); Specific Gravity,Urine 1.012 (1.010-1.025); Urobilinogen,Urine Normal (Normal)
[2019-06-20 11:36] VITALS: BP 136/91
[2019-06-20] MEDS ORDERED: metroNIDAZOLE 500 MG TABLET PO SCH (15:00)
[2019-06-20] MEDS ORDERED: Sulfamethoxazole/Trimeth DS 1 EACH TABLET PO SCH (21:00)
== END 2019-06-20 14:45 | disposition home or self-care (01) | DRG 244 ==
LOC: 3ANU → SUATTDRO 22:06
PROVIDERS: ADMIT Internal Medicine; ATTEND Internal Medicine

== ENCOUNTER 2019-06-24 10:20 | Inpatient (IN) ==
[2019-06-24] MEDS ORDERED: Isovue-370 500 ML BOTTLE IVP ONE (17:09)
[2019-06-24] MEDS ORDERED: Ketorolac 15 MG/ML VIAL IVP ONE (17:09)
[2019-06-24 18:07] LABS: Basophils # 0.1 K/mcL (0.0-0.2); Basophils % 0.8 %; Eosinophils # 0.2 K/mcL (0.0-0.6); Eosinophils % 2.2 %; Hematocrit 39.4 % (37.5-50.1); Hemoglobin 13.3 g/dL (12.9-16.9); Immature Granulocytes % 0.8 % (0-4); Lymphocytes # 3.1 K/mcL (0.6-4.6); Lymphocytes % 40.3 %; Mean Corpuscular HGB Conc 33.8 g/dL (31.6-35.5); Mean Corpuscular Hemoglobin 31.8 pg (28.0-33.3); Mean Corpuscular Volume 94.3 fL (83.0-100.0); Mean Platelet Volume 9.9 fL (9.4-12.4); Monocytes # 0.8 K/mcL (0.0-1.3); Monocytes % 10.3 %; Neutrophils # 3.5 K/mcL (1.6-8.9); Platelet Count 284 K/mcL (140-400); Red Blood Count 4.18 M/mcL (4.19-5.50); Red Cell Distribution Width 14.2 % (11.5-14.5); Segmented Neutrophils % 45.6 %; White Blood Count 7.7 K/mcL (4.3-11.1)
[2019-06-24] MEDS: 0.9 % Sodium Chloride 1,000 ML IVC SCH (18:15)
[2019-06-24] MEDS ORDERED: Ketorolac 15 MG/ML VIAL IVP PRN (23:23)
[2019-06-25] MEDS: 0.9 % Sodium Chloride 1,000 ML IVC SCH ×2 (08:53→23:55)
[2019-06-25 10:30] LABS: Basophils % 0.6 %; Eosinophils # 0.1 K/mcL (0.0-0.6); Eosinophils % 1.8 %; Hematocrit 38.5 % (37.5-50.1); Hemoglobin 13.1 g/dL (12.9-16.9); Immature Granulocytes % 0.7 % (0-4); Lymphocytes % 27.3 %; Mean Corpuscular Hemoglobin 30.9 pg (28.0-33.3); Mean Corpuscular Volume 90.8 fL (83.0-100.0); Mean Platelet Volume 9.7 fL (9.4-12.4); Monocytes # 0.6 K/mcL (0.0-1.3); Monocytes % 7.8 %; Neutrophils # 4.4 K/mcL (1.6-8.9); Platelet Count 257 K/mcL (140-400); Red Blood Count 4.24 M/mcL (4.19-5.50); Red Cell Distribution Width 14.1 % (11.5-14.5); Segmented Neutrophils % 61.8 %; White Blood Count 7.1 K/mcL (4.3-11.1)
[2019-06-25 10:31] LABS: INR 1.1; Prothrombin Time 12.1 Seconds (9.4-12.1)
[2019-06-25 10:58] LABS: BUN/Creatinine Ratio 17 (6-26); Blood Urea Nitrogen 21 mg/dL (6-20); Calcium 9.8 mg/dL (8.6-10.3); Carbon Dioxide 23 mEq/L (23-29); Chloride 100 mEq/L (98-107); Glucose 119 mg/dL (70-105); Magnesium 0.9 mg/dL (1.6-2.6); Osmolality,Calculated 288 (280-300); Phosphorous 2.8 mg/dL (2.7-4.5); Potassium 4.5 mEq/L (3.5-5.1); Sodium 137 mEq/L (136-145); eGFR For African Americans > 60 (> 60); eGFR For Non-African Americans > 60 (> 60)
[2019-06-25] MEDS ORDERED: Acetaminophen 325 MG TABLET PO PRN (14:51)
[2019-06-25] MEDS: Piperacillin/Tazobactam 3.375 GM in 0.9 % Sodium Chloride Mini Bag 100 ML IVPB SCH ×2 (17:36→23:55)
[2019-06-25] MEDS: Ketorolac 15 MG/ML VIAL IVP PRN (17:36)
[2019-06-25] MEDS: *HR* Heparin 5,000 UNIT/ML VIAL SQ SCH (17:37)
[2019-06-25] MEDS: Ondansetron 4 MG/2 ML VIAL IVP PRN (19:19)
[2019-06-25] MEDS: amLODIPine 5 MG TABLET PO SCH (19:52)
[2019-06-25] MEDS: Lisinopril 20 MG TABLET PO SCH (21:17)
[2019-06-25] MEDS ORDERED: 0.9 % Sodium Chloride Mini Bag 100 ML ONE (23:46)
[2019-06-26 05:20] LABS: Basophils % 0.5 %; Eosinophils # 0.2 K/mcL (0.0-0.6); Eosinophils % 3.2 %; Hematocrit 37.5 % (37.5-50.1); Hemoglobin 12.6 g/dL (12.9-16.9); Immature Granulocytes % 0.3 % (0-4); Lymphocytes # 2.5 K/mcL (0.6-4.6); Lymphocytes % 39.3 %; Mean Corpuscular HGB Conc 33.6 g/dL (31.6-35.5); Mean Corpuscular Hemoglobin 31.5 pg (28.0-33.3); Mean Corpuscular Volume 93.8 fL (83.0-100.0); Mean Platelet Volume 9.8 fL (9.4-12.4); Monocytes # 0.5 K/mcL (0.0-1.3); Monocytes % 7.9 %; Neutrophils # 3.1 K/mcL (1.6-8.9); Platelet Count 236 K/mcL (140-400); Segmented Neutrophils % 48.8 %; White Blood Count 6.3 K/mcL (4.3-11.1)
[2019-06-26 05:29] LABS: Magnesium 1.3 mg/dL (1.6-2.6); Phosphorous 3.5 mg/dL (2.7-4.5)
[2019-06-26] MEDS: Ketorolac 15 MG/ML VIAL IVP PRN ×2 (05:52→17:26)
[2019-06-26] MEDS: *HR* Heparin 5,000 UNIT/ML VIAL SQ SCH ×2 (05:52→17:25)
[2019-06-26] MEDS ORDERED: *HR* OxyCODONE/APAP 10/325 TABLET PO PRN (09:19)
[2019-06-26] MEDS ORDERED: Scopolamine Patch 1.5 MG PATCH.TD72 TD SCH (09:30)
[2019-06-26 10:00] LABS: Bilirubin,Urine Negative (Negative); Blood,Urine Negative (Negative); Clarity,Urine Clear (Clear); Color,Urine Yellow (Yellow); Glucose,Urine (UA) Normal (Normal); Ketones,Urine Negative (Negative); Leukocyte Esterase,Urine Negative (Negative); Nitrite,Urine Negative (Negative); Protein,Urine Negative (Neg-Trace); Urobilinogen,Urine Normal (Normal)
[2019-06-26] MEDS: clonazePAM 1 MG TABLET PO SCH ×2 (10:23→19:41)
[2019-06-26] MEDS: amLODIPine 5 MG TABLET PO SCH (10:24)
[2019-06-26] MEDS: Lisinopril 20 MG TABLET PO SCH ×2 (10:24→19:41)
[2019-06-26] MEDS: Piperacillin/Tazobactam 3.375 GM in 0.9 % Sodium Chloride Mini Bag 100 ML IVPB SCH ×3 (10:26→23:40)
[2019-06-26] MEDS: Ondansetron 4 MG/2 ML VIAL IVP PRN (15:21)
[2019-06-26] MEDS: Metoprolol 100 MG TABLET PO SCH (19:41)
[2019-06-26] MEDS: 0.9 % Sodium Chloride 1,000 ML IVC SCH (19:45)
[2019-06-27] MEDS: 0.9 % Sodium Chloride 1,000 ML IVC SCH ×4 (00:20→23:23)
[2019-06-27] MEDS: Ondansetron 4 MG/2 ML VIAL IVP PRN (03:04)
[2019-06-27] MEDS: *HR* Heparin 5,000 UNIT/ML VIAL SQ SCH ×2 (05:17→16:13)
[2019-06-27] MEDS: Piperacillin/Tazobactam 3.375 GM in 0.9 % Sodium Chloride Mini Bag 100 ML IVPB SCH ×3 (08:13→23:23)
[2019-06-27] MEDS: clonazePAM 1 MG TABLET PO SCH ×2 (08:13→20:19)
[2019-06-27] MEDS: amLODIPine 5 MG TABLET PO SCH (08:14)
[2019-06-27] MEDS: Metoprolol 100 MG TABLET PO SCH ×2 (08:14→20:19)
[2019-06-27] MEDS: Lisinopril 20 MG TABLET PO SCH ×2 (08:14→20:20)
[2019-06-27] MEDS: Ketorolac 15 MG/ML VIAL IVP PRN (08:17)
[2019-06-27] MEDS: Pantoprazole 40 MG VIAL IVP SCH ×2 (10:48)
[2019-06-27] MEDS ORDERED: *HR* Midazolam HCl 2 MG/2 ML VIAL ONE (16:54)
[2019-06-27] MEDS ORDERED: *HR* FentaNYL (PF) 100 MCG/2 ML VIAL ONE (16:54)
[2019-06-27] MEDS ORDERED: *HR* Propofol 200 MG/20 ML VIAL IVP ONE (16:54)
[2019-06-27] MEDS ORDERED: Lidocaine -MPF 2% 2 ML VIAL ONE (16:55)
[2019-06-27] MEDS ORDERED: Ondansetron 4 MG/2 ML VIAL ONE (16:56)
[2019-06-27] MEDS ORDERED: Dexamethasone 4 MG/ML VIAL ONE (16:56)
[2019-06-27] MEDS ORDERED: Ondansetron 4 MG/2 ML VIAL IVP ONE ×2 (19:08→22:43)
[2019-06-27] MEDS ORDERED: *HR* Meperidine 25 MG/ML SYRINGE IVP PRN ×2 (19:08→22:43)
[2019-06-27] MEDS ORDERED: Acetaminophen IV 1,000 MG/100 ML INFUS..BTL ONE (20:30)
[2019-06-27] MEDS ORDERED: *HR* Rocuronium Bromide 50 MG/5 ML VIAL ONE (20:31)
[2019-06-27] MEDS ORDERED: *HR* PHENYLEPHRINE 1,000 MCG/10 ML SYRINGE IVP ONE (20:32)
[2019-06-27] MEDS ORDERED: Ketorolac 30 MG/ML VIAL ONE (21:26)
[2019-06-27] MEDS: *HR* HYDROmorphone (PF) 1 MG/ML SYRINGE IVP PRN ×3 (22:03→22:21)
[2019-06-27] MEDS: *HR* Promethazine 25 MG/ML VIAL IVP PRN ×2 (22:03→22:21)
[2019-06-27] MEDS ORDERED: *HR* HYDROmorphone (PF) 1 MG/ML SYRINGE IVP PRN (22:43)
[2019-06-27] MEDS ORDERED: Ondansetron 4 MG/2 ML VIAL IVP PRN (22:43)
[2019-06-27] MEDS ORDERED: Acetaminophen 325 MG TABLET PO PRN (22:43)
[2019-06-27] MEDS: *HR* OxyCODONE/APAP 10/325 TABLET PO PRN (23:23)
[2019-06-28] MEDS: Ketorolac 15 MG/ML VIAL IVP PRN ×3 (01:39→17:21)
[2019-06-28] MEDS: *HR* OxyCODONE/APAP 10/325 TABLET PO PRN ×3 (05:59→22:39)
[2019-06-28] MEDS: *HR* Heparin 5,000 UNIT/ML VIAL SQ SCH ×2 (06:01→17:22)
[2019-06-28] MEDS: 0.9 % Sodium Chloride 1,000 ML IVC SCH (06:03)
[2019-06-28] MEDS ORDERED: Pantoprazole 40 MG VIAL IVP SCH (09:00)
[2019-06-28] MEDS: Piperacillin/Tazobactam 3.375 GM in 0.9 % Sodium Chloride Mini Bag 100 ML IVPB SCH ×2 (09:39→17:22)
[2019-06-28] MEDS: clonazePAM 1 MG TABLET PO SCH ×2 (09:40→20:05)
[2019-06-28] MEDS: Lisinopril 20 MG TABLET PO SCH ×2 (09:40→20:04)
[2019-06-28] MEDS: Metoprolol 100 MG TABLET PO SCH ×2 (09:40→20:05)
[2019-06-28] MEDS: amLODIPine 5 MG TABLET PO SCH (09:41)
[2019-06-28] MEDS: D5% in 0.45% NACL w KCl 20 MEQ/1,000 ML MLS IVC SCH (13:38)
[2019-06-29] MEDS: Piperacillin/Tazobactam 3.375 GM in 0.9 % Sodium Chloride Mini Bag 100 ML IVPB SCH ×4 (01:37→23:11)
[2019-06-29] MEDS: Ketorolac 15 MG/ML VIAL IVP PRN ×3 (01:37→22:29)
[2019-06-29] MEDS: D5% in 0.45% NACL w KCl 20 MEQ/1,000 ML MLS IVC SCH ×3 (05:23→20:06)
[2019-06-29] MEDS: *HR* Heparin 5,000 UNIT/ML VIAL SQ SCH ×2 (05:36→18:25)
[2019-06-29] MEDS: *HR* OxyCODONE/APAP 10/325 TABLET PO PRN ×3 (05:37→20:03)
[2019-06-29] MEDS: amLODIPine 5 MG TABLET PO SCH (09:26)
[2019-06-29] MEDS: Lisinopril 20 MG TABLET PO SCH ×2 (09:26→20:05)
[2019-06-29] MEDS: clonazePAM 1 MG TABLET PO SCH ×2 (09:26→20:05)
[2019-06-29] MEDS: Metoprolol 100 MG TABLET PO SCH ×2 (09:26→20:05)
[2019-06-29] MEDS ORDERED: Scopolamine Patch 1.5 MG PATCH.TD72 TD SCH (09:30)
[2019-06-29 13:08] LABS: BUN/Creatinine Ratio 9 (6-26); Blood Urea Nitrogen 10 mg/dL (6-20); Carbon Dioxide 24 mEq/L (23-29); Chloride 107 mEq/L (98-107); Glucose 93 mg/dL (70-105); Magnesium 1.6 mg/dL (1.6-2.6); Osmolality,Calculated 287 (280-300); Phosphorous 2.9 mg/dL (2.7-4.5); Potassium 4.5 mEq/L (3.5-5.1); Sodium 139 mEq/L (136-145); eGFR For African Americans > 60 (> 60); eGFR For Non-African Americans > 60 (> 60)
[2019-06-30] MEDS: *HR* OxyCODONE/APAP 10/325 TABLET PO PRN ×2 (02:26→09:27)
[2019-06-30] MEDS: *HR* Heparin 5,000 UNIT/ML VIAL SQ SCH (05:21)
[2019-06-30] MEDS: amLODIPine 5 MG TABLET PO SCH (09:26)
[2019-06-30] MEDS: clonazePAM 1 MG TABLET PO SCH (09:28)
[2019-06-30] MEDS: Lisinopril 20 MG TABLET PO SCH (09:28)
[2019-06-30] MEDS: Metoprolol 100 MG TABLET PO SCH (09:28)
[2019-06-30 11:39] VITALS: BP 127/85
== END 2019-06-30 15:49 | disposition home or self-care (01) | DRG 244 ==
LOC: 3BNU
PROVIDERS: ADMIT Surgery; ATTEND Surgery

== ENCOUNTER 2019-07-11 23:08 | Observation (INO) ==
[2019-07-12] MEDS ORDERED: Naloxone 0.4 MG/ML INJ IVP PRN (02:48)
[2019-07-12] MEDS: 0.9 % Sodium Chloride 1,000 ML IVC SCH ×2 (03:47→15:06)
[2019-07-12 04:21] LABS: Alanine Aminotransferase 12 Units/L (7-52); Albumin 3.8 g/dL (3.5-5.7); Albumin/Globulin Ratio 1.3 (1.1-2.2); Alkaline Phosphatase 68 Units/L (34-104); Aspartate Amino Transferase 14 Units/L (13-39); BUN/Creatinine Ratio 11 (6-26); Bilirubin,Total 0.4 mg/dL (0.3-1.0); Blood Urea Nitrogen 10 mg/dL (6-20); Calcium 8.4 mg/dL (8.6-10.3); Carbon Dioxide 25 mEq/L (23-29); Chloride 103 mEq/L (98-107); Globulin 2.9 g/dL (2.4-3.5); Glucose 92 mg/dL (70-105); Magnesium 1.1 mg/dL (1.6-2.6); Magnesium 1.2 mg/dL (1.6-2.6); Osmolality,Calculated 291 (280-300); Phosphorous 2.7 mg/dL (2.7-4.5); Potassium 3.2 mEq/L (3.5-5.1); Sodium 141 mEq/L (136-145); Total Protein 6.7 g/dL (6.4-8.9); eGFR For African Americans > 60 (> 60); eGFR For Non-African Americans > 60 (> 60)
[2019-07-12] MEDS: *HR* Enoxaparin 40 MG/0.4 ML SYRINGE SQ SCH (08:21)
[2019-07-12] MEDS: Potassium Chloride Elixir 20 MEQ/15 ML UDC PO SCH ×2 (12:56→15:06)
[2019-07-12 19:00] LABS: BUN/Creatinine Ratio 10 (6-26); Blood Urea Nitrogen 9 mg/dL (6-20); Calcium 8.7 mg/dL (8.6-10.3); Carbon Dioxide 23 mEq/L (23-29); Chloride 106 mEq/L (98-107); Glucose 100 mg/dL (70-105); Magnesium 1.9 mg/dL (1.6-2.6); Osmolality,Calculated 281 (280-300); Potassium 4.1 mEq/L (3.5-5.1); Sodium 136 mEq/L (136-145); eGFR For African Americans > 60 (> 60); eGFR For Non-African Americans > 60 (> 60)
[2019-07-12] MEDS ORDERED: Ibuprofen 600 MG TABLET PO ONE (21:30)
[2019-07-13 07:22] LABS: Alanine Aminotransferase 11 Units/L (7-52); Albumin 3.6 g/dL (3.5-5.7); Albumin/Globulin Ratio 1.2 (1.1-2.2); Alkaline Phosphatase 70 Units/L (34-104); Aspartate Amino Transferase 14 Units/L (13-39); BUN/Creatinine Ratio 10 (6-26); Bilirubin,Total 0.4 mg/dL (0.3-1.0); Blood Urea Nitrogen 8 mg/dL (6-20); Calcium 8.5 mg/dL (8.6-10.3); Carbon Dioxide 24 mEq/L (23-29); Chloride 103 mEq/L (98-107); Glucose 96 mg/dL (70-105); Magnesium 1.7 mg/dL (1.6-2.6); Osmolality,Calculated 286 (280-300); Potassium 3.7 mEq/L (3.5-5.1); Sodium 139 mEq/L (136-145); Total Protein 6.6 g/dL (6.4-8.9); eGFR For African Americans > 60 (> 60); eGFR For Non-African Americans > 60 (> 60)
[2019-07-13] MEDS: Ondansetron 4 MG/2 ML VIAL IVP PRN ×2 (07:31→11:01)
[2019-07-13] MEDS: *HR* Enoxaparin 40 MG/0.4 ML SYRINGE SQ SCH (09:46)
[2019-07-13] MEDS ORDERED: Ondansetron 4 MG/2 ML VIAL IVP PRN (11:10)
[2019-07-13 11:35] VITALS: BP 150/91
== END 2019-07-13 16:38 | disposition home or self-care (01) ==
LOC: 3ANU
PROVIDERS: ADMIT Student in an Organized Health Care Education/Training Program; ATTEND Student in an Organized Health Care Education/Training Program